=== PATIENT | male | born 1945 | race Caucasian/White ===

== ENCOUNTER → 2023-10-08 06:26 | Outpatient (REF) | payer MEDICARE, OTHER, SELFPAY ==
[2023-10-08 09:15] LABS: % Basophils 0.9 % (0-2); % Eosinophils 3.7 % (0-6); % Immature Granulocytes 0.3 % (0-0.5); % Lymphocytes 45.5 % (20.5-51.1); % Monocytes 9.5 % (1.7-9.3); % Neutrophils 40.1 % (42.2-75.2); Absolute Basophils 0.1 10^3/uL (0-0.2); Absolute Eosinophils 0.2 10^3/uL (0-0.7); Absolute Monocytes 0.6 10^3/uL (0.1-0.6); Absolute Neutrophils 2.6 10^3/uL (1.4-6.5); Hematocrit 40.1 % (39.0-52.0); Hemoglobin 13.8 g/dL (13.0-18.0); Mean Corp Hgb Conc. 34.4 g/dL (33.0-37.0); Mean Corpuscular Hgb 34.8 pg (27.0-31.0); Mean Platelet Volume 10.1 fL (7.4-10.4); Nucleated Red Blood Cells % 0 % (-); Platelet Count 245 10^3/uL (130-400); Red Blood Cell Count 3.97 10^6/uL (4.70-6.10); Red Cell Dist. Width 12.4 % (11.5-14.5); White Blood Cell Count 6.6 10^3/uL (4.8-10.8)
[2023-10-08 10:40] LABS: ALT (SGPT) 19 U/L (0-50); AST (SGOT) 31 U/L (17-59); Alkaline Phosphatase 70 U/L (38-126); Blood Urea Nitrogen 15 mg/dl (9-20); Calcium 9.1 mg/dl (8.4-10.2); Carbon Dioxide 28 mmol/L (22-30); Chloride 105 mmol/L (98-107); Glucose 104 mg/dl (70-99); Sodium 138 mmol/L (135-145); Total Bilirubin 1.2 mg/dl (0.2-1.3); Total Protein 7.2 g/dl (6.3-8.2); eGFR > 60.00
== END ==
LOC: HWLAB 06:26
PROVIDERS: ATTENDING PHYSICIAN Family Medicine
DX: I10 Essential (primary) hypertension (principal)
CPT/HCPCS: 36415; 80053; 85025

== ENCOUNTER → 2023-10-27 07:04 | Outpatient (REF) | payer MEDICARE, OTHER, SELFPAY | LOC: HWRCS 07:04 | PROVIDERS: ATTENDING PHYSICIAN Internal Medicine Cardiovascular Disease; FAMILY PHYSICIAN Family Medicine | DX: I48.91 Unspecified atrial fibrillation (principal) | CPT/HCPCS: 93306 ==

== ENCOUNTER → 2023-10-30 09:07 | Day surgery (SDC) | payer MEDICARE, OTHER, SELFPAY ==
[2023-10-30 10:03] VITALS: BMI 31.6
--- NOTE | 2023-10-30 10:30 | ITS.CL.CARDI ---
Durability Technician - Cardioversion
Cardioversion
Procedure Report:
Procedure: Direct current electrical cardioversion
Pre-operative diagnosis: Persistent atrial fibrillation
Post-operative diagnosis: Persistent atrial fibrillation status post DC cardioversion to sinus rhythm
Anesthesia: MAC
Attending Physician: Pj Perez MD
Procedure Description: The patient was brought to the electrophysiology laboratory in the fasting state. Adherence to anticoagulation regimen was confirmed. Informed consent was obtained from the patient prior to the start of the procedure.
Electrodes were placed on the patient and connected to an external defibrillator. Monitoring of blood pressure, ECG tracings, and pulse oximetry was initiated. The pads were applied to the patient in the anterior and posterior positions. The patient
was sedated by the anesthesiologist. A 200 joule biphasic synchronized shock was delivered to the patient under MAC anesthesia. Sinus rhythm was successfully restored. The patient recovered uneventfully from MAC anesthesia. There were no immediate
post-procedure complications. The patient left the lab in good condition. The attending physician was present throughout the entire procedure.
Impression: Successful direct current cardioversion with mu-ism of sinus rhythm after one 200 joule biphasic synchronized shock.
== END ==
LOC: CATH 09:07
PROVIDERS: ATTENDING PHYSICIAN Internal Medicine Cardiovascular Disease; FAMILY PHYSICIAN Family Medicine
DX: I48.19 Other persistent atrial fibrillation (principal)
CPT/HCPCS: 92960; 93005

== ENCOUNTER → 2024-03-18 14:45 | Outpatient (REF) | payer MEDICARE, OTHER, SELFPAY | LOC: HWRAD 14:45 | PROVIDERS: ATTENDING PHYSICIAN Specialist; FAMILY PHYSICIAN Family Medicine | DX: I10 Essential (primary) hypertension (principal); N28.1 Cyst of kidney, acquired | CPT/HCPCS: 76775 ==

== ENCOUNTER → 2024-05-31 07:18 | Outpatient (REF) | payer MEDICARE, OTHER, SELFPAY ==
[2024-05-31 10:11] LABS: INR 1.86; PT 21.2 Sec (11.4-14.6)
== END ==
LOC: HWLAB 07:18
PROVIDERS: ATTENDING PHYSICIAN Internal Medicine Cardiovascular Disease; FAMILY PHYSICIAN Family Medicine
DX: I48.19 Other persistent atrial fibrillation (principal)
CPT/HCPCS: 36415; 85610

== ENCOUNTER → 2024-06-02 07:32 | Outpatient (REF) | payer MEDICARE, OTHER, SELFPAY ==
[2024-06-02 09:53] LABS: INR 4.54; PT 43.9 Sec (11.4-14.6)
== END ==
LOC: HWLAB 07:32
PROVIDERS: ATTENDING PHYSICIAN Internal Medicine Cardiovascular Disease; FAMILY PHYSICIAN Family Medicine
DX: I48.19 Other persistent atrial fibrillation (principal)
CPT/HCPCS: 36415; 85610

== ENCOUNTER → 2024-06-07 07:44 | Outpatient (REF) | payer MEDICARE, OTHER, SELFPAY ==
[2024-06-07 09:13] LABS: INR 4.01; PT 39.1 Sec (11.4-14.6)
== END ==
LOC: HWLAB 07:44
PROVIDERS: ATTENDING PHYSICIAN Internal Medicine Cardiovascular Disease; FAMILY PHYSICIAN Family Medicine
DX: I48.19 Other persistent atrial fibrillation (principal)
CPT/HCPCS: 36415; 85610

== ENCOUNTER → 2024-06-14 07:29 | Outpatient (REF) | payer MEDICARE, OTHER, SELFPAY ==
[2024-06-14 10:45] LABS: PT 61.7 Sec (11.4-14.6)
[2024-06-14 10:51] LABS: INR 7.12
== END ==
LOC: HWLAB 07:29
PROVIDERS: ATTENDING PHYSICIAN Internal Medicine Cardiovascular Disease; FAMILY PHYSICIAN Family Medicine
DX: I48.19 Other persistent atrial fibrillation (principal)
CPT/HCPCS: 36415; 85610

== ENCOUNTER 2024-06-16 09:34 | Inpatient (IN) | payer MEDICARE, OTHER, SELFPAY ==
[2024-06-16] VITALS (25 sets, daily range): BP systolic 85–150; BP diastolic 57–99; PULSE 108–149; BMI 30.3; BMI 28.9
[2024-06-16 07:26] LABS: % Basophils 0.8 % (0-2); % Eosinophils 2.4 % (0-6); % Immature Granulocytes 0.2 % (0-0.5); % Lymphocytes 33.7 % (20.5-51.1); % Monocytes 8.7 % (1.7-9.3); % Neutrophils 54.2 % (42.2-75.2); Absolute Basophils 0.1 10^3/uL (0-0.2); Absolute Eosinophils 0.2 10^3/uL (0-0.7); Absolute Lymphocytes 2.1 10^3/uL (1.2-3.4); Absolute Monocytes 0.5 10^3/uL (0.1-0.6); Absolute Neutrophils 3.4 10^3/uL (1.4-6.5); Hematocrit 39.4 % (39.0-52.0); Hemoglobin 13.9 g/dL (13.0-18.0); Mean Corp Hgb Conc. 35.3 g/dL (33.0-37.0); Mean Corpuscular Hgb 35.5 pg (27.0-31.0); Mean Corpuscular Volume 100.8 fL (80.0-94.0); Mean Platelet Volume 10.3 fL (7.4-10.4); Nucleated Red Blood Cells % 0 % (-); Platelet Count 236 10^3/uL (130-400); Red Blood Cell Count 3.91 10^6/uL (4.70-6.10); Red Cell Dist. Width 12.8 % (11.5-14.5); White Blood Cell Count 6.2 10^3/uL (4.8-10.8)
[2024-06-16 07:34] LABS: PT 52.6 Sec (11.4-14.6)
[2024-06-16 07:39] LABS: ALT (SGPT) 17 U/L (0-50); AST (SGOT) 27 U/L (17-59); Alkaline Phosphatase 55 U/L (38-126); Blood Urea Nitrogen 12 mg/dl (9-20); Calcium 8.9 mg/dl (8.4-10.2); Carbon Dioxide 24 mmol/L (22-30); Chloride 105 mmol/L (98-107); Estimated Creatinine Clearance 106 ml/min; Glucose 98 mg/dl (70-99); Potassium 4.1 mmol/L (3.5-5.1); Sodium 140 mmol/L (135-145); Total Bilirubin 1.1 mg/dl (0.2-1.3); Total Protein 6.8 g/dl (6.3-8.2); eGFR > 60.00
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
[2024-06-16] MEDS: MEPHYTON 5 MG PO (08:28)
--- NOTE | 2024-06-16 09:09 | HPS.HSE ---
Family Physician
-
Family Physician: Daysi Delgadillo
Chief Complaint
-
Rectal bleeding
History of Present Illness
78-year-old man presented to the hospital for rectal bleeding. He woke up this morning and had loose mckinney movement this was bloody. Recently his INR was about 7 he also had a fall 2 days ago. When he went to go out landed on the right side and
also on the right rib did not hit the head. It was on a soft foam jeet. Denies any dizziness. No evidence of chest pain or shortness of breath except for the area where he landed on on the right rib. No melena no hematemesis no nausea or
vomiting
Medical History
Past Medical History
Past Medical History: Reports Other
Additional Past Medical History:
Chronic back pain and neck pain, atrial fibrillation, hypertension, hyperlipidemia, arthritis, depression, GERD
Past Surgical History: Reports Other
Additional Past Surgical History:
Cholecystectomy, appendectomy, right shoulder surgery, left shoulder ORIF, non-STEMI, left hip replacement, sinus surgery, left knee arthroplasty, cataract surgery, lumbar spine surgery, right total hip replacement,
Social History
Tobacco: Non-smoker
Alcohol: Daily (2 glasses of wine every day)
Drug: None
Personal:
Living: With Family
Employment: Retired
Family History
Family History: Not pertinent
Allergies / Home Medications
Allergies reflects when Allergies were last updated in [facility].
Home Medications with original date entered in [facility]
Allergy/Medication List:
Allergies
Allergy/AdvReac Type Severity Reaction Status Date / Time
morphine AdvReac 'years Verified 06/16/24 06:36
ago' 'mood
changes'
Home Medications
omeprazole 20 mg capsule,delayed release 20 mg PO DAILY stomach upset 08/20/18
amlodipine 10 mg tablet 10 mg PO DAILY blood pressure 02/03/19
losartan 100 mg tablet 100 mg PO DAILY Blood Pressure 02/03/19
acetaminophen 650 mg tablet,extended release 1,300 mg PO [id number] PRN mild pain 06/16/24
omega 5-ihx-pfc-fish oil 1,000 mg (120 mg-180 mg) capsule (Fish Oil) 1 cap PO DAILY Supplement 06/16/24
warfarin 5 mg tablet 5 mg PO UD Blood Clot Prevention/Tx 06/16/24
Review of Systems
-
A 12 point ROS was completed and negative except as noted: Yes
Respiratory: Denies Trouble Breathing
Cardiac: Denies Chest Pain
Abdomen/GI: Reports Bloody Stools; Denies Abdominal Pain, Nausea, Vomiting, Black Stools or Pain
Neurological: Denies Dizzy
Physical Exam
Vital Signs
Vital Signs
Temp Pulse Resp BP Pulse Ox
98.8 F 92 36 126/80 97
06/16/24 06:36 06/16/24 08:00 06/16/24 08:22 06/16/24 08:00 06/16/24 08:00
Physical Exam
General: No Apparent Distress and Comfortable
Cardiac: S1/S2 and Irregular Rhythm
GI: Soft, Non Tender and Normal Bowel Sounds
Skin: Warm
Neuro: Nonfocal/grossly intact
Psych: Intact Judgment/Insight
Laboratory Results
-
06/16/24 07:12
06/16/24 07:12
Laboratory Results
PT 52.6 Sec (11.4-14.6) H 06/16/24 07:12
INR 5.90 H* 06/16/24 07:12
Total Bilirubin 1.1 mg/dl (0.2-1.3) 06/16/24 07:12
AST 27 U/L (17-59) 06/16/24 07:12
ALT 17 U/L (0-50) 06/16/24 07:12
Alkaline Phosphatase 55 U/L (38-126) 06/16/24 07:12
Data Reviewed
-
Diagnostic Radiology: Image Personally Visualized and interpreted (X-ray of the ribs-no right side rib fractures. No pneumothorax or pleural effusion.)
Medical Tests (Nuc Med, Echo, EKG etc): Image Personally Visualized and interpreted (EKG-atrial fibrillation with a rate of 91)
Impression/Plan
-
IMPRESSION/PLAN:
Echo 3 2830-normal LV size, wall thickness and systolic function. EF 55 to 60%. Diastolic function indeterminate. Mild to moderate MR. Attic sclerosis without stenosis. Trace AI.
#GIB
CTA -increased density within the lumen of the rectum due to blood products. Focal area of nodular contrast enhancement involving medial aspect of the mid descending colon this is suspicious for a small focus of acute GI bleed although focal area
of angiodysplasia without active bleeding would have similar appearance. Numerous colonic diverticula no evidence of diverticulitis. Bony degenerative changes.
Admit to ICU
At present hemodynamically stable
Differentials includes diverticular bleed, angiectasia
Bleeding exacerbated by Coumadin
Hold Coumadin
Low-dose of vitamin K has been given-agree
Type and screen
Follow H&H
Blood consent obtained in the ER given to the breaker unit assembler to be scanned in
Protonix 40 mg IV daily
GI evaluation
Discussed with IR. INR is too high for intervention.
Since patient is in atrial fibrillation I did not start him on FFP's especially since he is hemodynamically stable.
# Paroxysmal atrial fibrillation
Patient is in atrial fibrillation at present not on any rate controlling agents as outpatient
Follow heart rate on hospital monitor
Hold anticoagulation
# Hypertension
Hold off on antihypertensives as blood pressure is on the low side
# GERD-continue PPI
# 2 glasses of wine every night-add thiamine. Watch for any withdrawal
# DVT prophylaxis-SCDs
# CODE STATUS-full code
D/W ER Nursing.
Discussed with at bedside
Discussed with ER attending at bedside
Discussed with GI and interventional radiology
Critical care time 45 minutes
--- NOTE | 2024-06-16 09:57 | CON.GI ---
Consultation
-
Date/Time Consultation Requested: 06/16/24 09.20 am
Date/Time Consultation Performed: 06/16/24 10/38 am
Requesting Provider: Evie Wetzel MD
Performing Provider: Cassie Kim MD
Reason for Consultation: Rectal Bleeding
Medical History
Chief Complaint / HPI
Chief Complaint: Rectal Bleeding
History of Present Illness:
The patient is a 78 yo male with a PMH of HTN, Renal cyst and A-fib who presented to ER after he noticed fresh blood with his stool this morning. He reported red colored blood with his stool for the first time this morning and he also had other 3
episodes of red colored BM with a very small amount of stool. He denies previous history of black/tarry stools, denies abdominal pain, fever/chills, nausea, hematemesis. His Abd/Pelvis Angio CT showed a suspicious small area in mid descending colon
supporting acute GI bleeding.The patient was consulted to GI team to be assessed for GI bleeding. The patient was started on Eliquis 4-5 months ago regarding his new A-fib diagnosis. He wanted to switch his Eliquis to warfarin due the cost and was
switched on warfarin about 2 weeks ago with 5 days Lovenox bridging. He was started with 5 mg of warfarin and had INR follow up with his clinic and was recommended to take half of his dose with INR level checks. His last warfarin taking was on
Thursday and it was 2.5 mg. His clinic called the patient on Thursday and advised the patient stop taking warfarin due his high INR level.
Past Medical History
Past Medical History: Arrhythmias (A-fib), HTN and Other (Renal Cyst )
Past Surgical History: Other (Left knee scope, Multiple epidural steroid injections, Bilateral total hip replacements, Back surgery, Pins in the left shoulder, Cholecystectomy, Appendectomy, Right total knee replacement, Right shoulder scope.)
Social History
Tobacco: Non-Smoker
Alcohol: Occasional
Drug: None
Personal:
Living: With Family
Family History
Family History: Reviewed & Not Pertinent
Allergies / Home Medications
Allergy/AdvReac Type Severity Reaction Status Date / Time
morphine AdvReac 'years Verified 06/16/24 06:36
ago' 'mood
changes'
�Medication �Instructions �Recorded
omeprazole 20 mg capsule,delayed 20 mg PO DAILY stomach upset 08/20/18
release
amlodipine 10 mg tablet 10 mg PO DAILY blood pressure 02/03/19
losartan 100 mg tablet 100 mg PO DAILY Blood Pressure 02/03/19
acetaminophen 650 mg 1,300 mg PO [id number] PRN mild pain 06/16/24
tablet,extended release
omega 2-jiv-tnl-fish oil 1,000 mg 1 cap PO DAILY Supplement 06/16/24
(120 mg-180 mg) capsule (Fish Oil)
warfarin 5 mg tablet 5 mg PO UD Blood Clot Prevention/Tx 06/16/24
Review of Systems
-
EENT: Reports No Symptoms
Respiratory: Reports Other (Pain on the right side with deep breathing after he had a fall 2 days ago )
Cardiac: Reports No Symptoms
Abdomen/GI: Reports No Symptoms and Other (See HPI )
: Reports No Symptoms
Musculoskeletal: Reports No Symptoms
Skin: Reports No Symptoms
Neurological: Reports No Symptoms
Vital Signs
Temp Pulse Resp BP Pulse Ox
98.8 F 81 16 136/79 99
06/16/24 06:36 06/16/24 09:34 06/16/24 09:34 06/16/24 09:34 06/16/24 09:34
Physical Exam
Exam
General: Well Developed, Well Nourished and Comfortable
HEENT: Normocephalic, Anicteric and Moist Mucous Membranes
Respiratory: Clear
Cardiac: S1/S2 and Irregular Rhythm
GI: Soft, Non Tender and Non Distended
Musculoskeletal: No Clubbing and No Cyanosis
Skin: Warm and Dry
Neuro: Awake, Alert, Oriented and AO x 3
Results
WBC 6.2 10^3/uL (4.8-10.8) 06/16/24 07:12
Hgb 13.9 g/dL (13.0-18.0) 06/16/24 07:12
Hct 39.4 % (39.0-52.0) 06/16/24 07:12
MCV 100.8 fL (80.0-94.0) H 06/16/24 07:12
Plt Count 236 10^3/uL (130-400) 06/16/24 07:12
Absolute Neuts (auto) 3.4 10^3/uL (1.4-6.5) 06/16/24 07:12
PT 52.6 Sec (11.4-14.6) H 06/16/24 07:12
INR 5.90 H* 06/16/24 07:12
Sodium 140 mmol/L (135-145) 06/16/24 07:12
Potassium 4.1 mmol/L (3.5-5.1) 06/16/24 07:12
Chloride 105 mmol/L (98-107) 06/16/24 07:12
Carbon Dioxide 24 mmol/L (22-30) 06/16/24 07:12
BUN 12 mg/dl (9-20) 06/16/24 07:12
Creatinine 0.6 mg/dL (0.7-1.3) L 06/16/24 07:12
Calcium 8.9 mg/dl (8.4-10.2) 06/16/24 07:12
Total Bilirubin 1.1 mg/dl (0.2-1.3) 06/16/24 07:12
AST 27 U/L (17-59) 06/16/24 07:12
ALT 17 U/L (0-50) 06/16/24 07:12
Alkaline Phosphatase 55 U/L (38-126) 06/16/24 07:12
Diagnostic Image Results:
CT Abd/Pelvis Angio 06/16/24
IMPRESSION: There is increased density within the lumen of the rectum, which may be due to blood products. Differential consideration of increased density from medication.
There is a focal area of nodular contrast enhancement involving the medial aspect of the mid descending colon, although not progressing into the lumen on postcontrast delayed images. This is suspicious for a small focus of acute GI bleeding,
although a focal area of angiodysplasia without active bleeding could have a similar appearance.
Consider correlation with serial hemoglobin measurements.
Numerous colonic diverticula with no convincing CT evidence for diverticulitis. No evidence for bowel obstruction or free intraperitoneal air.
Bony degenerative changes as described.
Prior GI Procedures:
EGD: Not Known
Colonoscopy: 2017
Findings:
Multiple small and large-mouthed diverticula were found in the sigmoid
colon, descending colon and transverse colon.
No other significant abnormalities were identified in a careful
examination of the remainder of the colon.
No additional abnormalities were found on retroflexion.
Impression: - Diverticulosis in the sigmoid colon and in the
descending colon.
Recommendation: - To prevent colon cancer:
High fiber, low fat diet.
Take a multivitamin with Vitamins C and B complex along
with calcium (Centrum, Theragram, Multiple vitamin, etc.)
Take aspirin- 81mg- if there are no contraindications.
- You have diverticulosis- outpouches of the wall of the
colon.
Problems that can arise as a result of this condition
include;
1.) Profuse (cups, pints, quarts) painless bleeding
happens rarely- <1%. If it occurs, go to the ER.
2.) Painful diverticulitis occurs approximately 10% of
the time. This is possibly the result of hard stool
(probably) or poorly digested food such as nuts, seeds
and corn (less likely) becoming trapped in these
pockets. Consider increasing the fiber in your diet to
make the stool soft.
Using fiber (Fibercon, Citrucel, Benefiber, Metamucil)
possibly can prevent more diverticulosis from occurring.
- Repeat colonoscopy in 10 years for screening purposes.
- Return to my office as needed.
Assessment / Plan
-
Impression: The patient is a 78 yo male with a PMH of HTN, Renal cyst and A-fib who presented to ER after he noticed fresh blood with his stool this morning. The patient was started on Eliquis 4-5 months ago regarding his new A-fib diagnosis. He
wanted to switch his Eliquis to warfarin due the cost and was switched on warfarin about 2 weeks ago with 5 days Lovenox bridging. He was started with 5 mg of warfarin and had INR follow up with his clinic and was recommended to take half of his
dose with INR level checks. His last warfarin taking was on Thursday and it was 2.5 mg. He reported red colored blood with his stool for the first time this morning and he also had other 3 episodes of red colored BM with a very small amount of stool
today. His clinic called the patient on Thursday and advised the patient stop taking warfarin due his high INR level. His INR level was found 5.9 this morning and was 7.1 on 06/14; Hgb level was found 13.9 which is likely at his baseline.
He denies previous history of black/tarry stools, denies abdominal pain, fever/chills, nausea, hematemesis. His Abd/Pelvis Angio CT showed a suspicious small area in mid descending colon supporting acute GI bleeding.
Plan/Assessment:
#Lower GI bleeding Possibly due Warfarin
-Abd/Pelvis Angio CT: A suspicious small area in mid descending colon supporting acute GI bleeding
-IR consultation recc
-INR level tending down, last taking warfarin was on Thursday
-Was given 5mg of Mephyton once on 06/16
-Hold warfarin until INR >3 , avoid NSAI med, continue IV fluids
-HGB: 13.9 likely at baseline
-Hgb Serial Q8H, INR f/u daily
-Continue her current home PPI
-NPO for now until Hgb deyvi with follow up levels
We will follow up the patient
-
-
Thank you for consultation and allowing me to participate in the patient's care. Please call the wildfire prevention specialist GI physician during the after hours with any questions or concerns.
--- NOTE | 2024-06-16 12:12 | EDRN ---
Report called to [facility].
--- NOTE | 2024-06-16 12:41 | EDRN ---
Patient taken to room 3361 on monitor on stretcher. with patient.
[2024-06-16] MEDS: PROTONIX IV 40 MG IV (12:52)
[2024-06-16] MEDS: NSS (PRESERVATIVE FREE) 10 ML IV (12:52)
[2024-06-16] MEDS: THIAMINE INJECTION 200 MG IV (12:53)
[2024-06-16] MEDS: NSS 1000 IV (12:53)
[2024-06-16 13:30] LABS: Hematocrit 34.8 % (39.0-52.0); Hemoglobin 12.3 g/dL (13.0-18.0)
[2024-06-16 13:51] LABS: APTT 77.3 Sec (23.4-35.0)
--- NOTE | 2024-06-16 14:20 | CON.INTV ---
Consultation
Consultation Request
Date/Time Consultation Requested: 06/16/2024
Date/Time Consultation Performed: 06/16/2024
Requesting Provider: Dr. Wetzel
Performing Provider: Dr. Maurice Frank
Reason for Consultation: severe GI bleed
Medical History
-
Chief Complaint: GI bleed
History of Present Illness:
78-year-old man with past medical history significant for atrial fibrillation, hypertension, hyperlipidemia, arthritis and GERD who presented to the emergency room complaining of rectal bleeding. Woke up this morning and had a bloody bowel
movement. His INR recently as he is on Coumadin was 7. Denies melena.
Denies hematemesis.
Denies significant abdominal pain or back pain.
Past Medical History
Past Medical History: Other (See assessment and plan)
Social History
Tobacco: Non-smoker
Alcohol: Daily (2 glasses of wine)
Drug: None
Personal:
Living: With Family
Employment: Retired
Family History
Family History: Reviewed & Not Pertinent
Allergies / Home Medications
Allergies
Allergy/AdvReac Type Severity Reaction Status Date / Time
morphine AdvReac 'years Verified 06/16/24 06:36
ago' 'mood
changes'
Home Medications
�Medication �Instructions �Recorded �Confirmed �Last Taken �Type
omeprazole 20 mg capsule,delayed 20 mg PO DAILY stomach upset 08/20/18 06/16/24 06/15/24 History
release
amlodipine 10 mg tablet 10 mg PO DAILY blood pressure 02/03/19 06/16/24 06/15/24 History
losartan 100 mg tablet 100 mg PO DAILY Blood Pressure 02/03/19 06/16/24 06/15/24 History
acetaminophen 650 mg 1,300 mg PO [id number] PRN mild pain 06/16/24 06/16/24 Unknown History
tablet,extended release
omega 0-zlp-twi-fish oil 1,000 mg 1 cap PO DAILY Supplement 06/16/24 06/16/24 06/15/24 History
(120 mg-180 mg) capsule (Fish Oil)
warfarin 5 mg tablet 5 mg PO UD Blood Clot Prevention/Tx 06/16/24 06/16/24 2 Days Ago History
~06/14/24
Review of Systems
-
History Source: Patient
All other systems: Negative unless noted
Vitals / Labs / Diagnostic Testing
Vital Signs
Temp Pulse Resp BP Pulse Ox
98.8 F 95 17 129/82 98
06/16/24 06:36 06/16/24 14:15 06/16/24 14:15 06/16/24 14:00 06/16/24 14:15
Lab Data
06/16/24 07:12
Laboratory Results
06/16/24 06/16/24
07:12 13:22
PT 52.6 H
INR 5.90 H*
APTT 77.3 H
Diagnostic Testing:
Physical Exam
-
HEENT: Normocephalic
Cardiovascular: S1/S2
Respiratory: Non-Labored Respirations
GI: Soft and Non Distended
Neurology: Awake, Alert, AO x 3 and No Motor Deficits
Skin: Warm, Dry and Good Color
General: Comfortable
Assessment
-
78-year-old male with history of atrial fibrillation, hypertension, was admitted to the hospital due to hematochezia. Found to have supratherapeutic INR in the setting of Coumadin use. Admitted for close observation to the ICU given significant
amount of bright red blood per rectum.
GI bleed-hematochezia
CT angiogram: Showed increased density within the lumen of the rectum due to blood products.Focal area of nodular contrast enhancement involving medial aspect of the mid descending colon this is suspicious for a small focus of acute GI bleed
although focal area of angiodysplasia without active bleeding would have similar appearance. Numerous colonic diverticula no evidence of diverticulitis. Bony degenerative changes.
Coumadin coagulopathy-INR elevated 5.9 on admission
Conditions present prior admission:
Paroxysmal atrial fibrillation
Hypertension
GERD
Daily alcohol use 2 glasses of wine
Hyperlipidemia
Depression
Chronic back and neck pain
Prior sinus surgery
Left knee arthroplasty
Lumbar spine surgery
Right total knee arthroplasty
Bilateral shoulder surgery
Prior cholecystectomy and appendectomy
Assessment and plan:
Patient was transferred to the critical care unit for close observation.
So far hemodynamically without tachycardia or hypotension.
Hemoglobin 12.3 at 1322 hrs.
Status post vitamin K
Hold FFP for now with history of atrial fibrillation and hemodynamically stability.
Follow INR.
-
Benign abdominal exam.
PPI started
CT angiogram noted with possible active focus of bleeding-as above. IR unable to perform procedure due to increased INR.
Will continue to follow closely
GI correspondence reviewed, no plans for intervention at this point.
Follow H&H
Will transfuse as necessary
Continue hemodynamic monitoring
Coumadin on hold until INR under 3
-
N.p.o. for now
IV fluids
Head of the bed elevation
-
Hemodynamic monitoring in the critical care unit
If hemoglobin is stable by tomorrow morning and no plans for intervention then we will transfer to telemetry
--- NOTE | 2024-06-16 14:25 | PTCARENOTE ---
Pt receoved from ED via stretcher. Transferred over to unit bed by nursing staff. AAOx3. Denying pain. Stating pain to upper right chest when pushed on related to a recent fall. No bruise apparent. 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 +1 LE
edema. Pedal pulses palpable. SaO2 97% on room air. Lungs diminished. Pt (+) small liquid burgundy stool. #20 in left AC with NSS @ 75ml/hr infusing. New #20 placed in left right. Ordered labs drawn and sent.
--- NOTE | 2024-06-16 18:19 | PTCARENOTE ---
Pt reassessed. HR to 150s when standing at bedside for orthostatic hypotension. HR slowed to 100s-110s after returning to bed. Pt without complaint.
--- NOTE | 2024-06-16 19:45 | PTCARENOTE ---
Patient received in bed, AAOx3. Afib on monitor, afebrile, blood pressure as documented. Palpable pulses throughout, +1 edema to bilateral lower extremities. Knee high SCDS maintained. Lungs clear, pulse ox 96% on room air. Abdomen soft with
positive bowel sounds. Voiding in urinal . #20 in left wrist with IVF infusing as ordered. #20 g in LAC flushed and patent. Call mckinney within reach
--- NOTE | 2024-06-16 20:07 | PTCARENOTE ---
Patient with large bloody bowel movement, notified Brooks MCKEON, INR ordered in addition to H&H
[2024-06-16 20:10] LABS: Hematocrit 30.7 % (39.0-52.0); Hemoglobin 10.8 g/dL (13.0-18.0)
[2024-06-16 20:20] LABS: INR 2.61; PT 28.3 Sec (11.4-14.6)
[2024-06-17] VITALS (22 sets, daily range): BP systolic 95–134; BP diastolic 64–100; PULSE 101–136; BMI 28.9
[2024-06-17] MEDS: NSS 1000 IV ×2 (01:36→15:23)
--- NOTE | 2024-06-17 04:36 | PTCARENOTE ---
assumed care of pt, assessment as documented. denies pain at this time. AM labs sent. call mckinney within reach.
[2024-06-17 05:17] LABS: % Basophils 0.5 % (0-2); % Eosinophils 1.1 % (0-6); % Immature Granulocytes 0.3 % (0-0.5); % Lymphocytes 23.3 % (20.5-51.1); % Monocytes 7.1 % (1.7-9.3); % Neutrophils 67.7 % (42.2-75.2); Absolute Eosinophils 0.1 10^3/uL (0-0.7); Absolute Lymphocytes 1.5 10^3/uL (1.2-3.4); Absolute Monocytes 0.5 10^3/uL (0.1-0.6); Absolute Neutrophils 4.5 10^3/uL (1.4-6.5); Hematocrit 30.1 % (39.0-52.0); Hemoglobin 10.6 g/dL (13.0-18.0); Mean Corp Hgb Conc. 35.2 g/dL (33.0-37.0); Mean Corpuscular Hgb 35.5 pg (27.0-31.0); Mean Corpuscular Volume 100.7 fL (80.0-94.0); Mean Platelet Volume 10.6 fL (7.4-10.4); Nucleated Red Blood Cells % 0 % (-); Platelet Count 196 10^3/uL (130-400); Red Blood Cell Count 2.99 10^6/uL (4.70-6.10); Red Cell Dist. Width 12.6 % (11.5-14.5); White Blood Cell Count 6.6 10^3/uL (4.8-10.8)
[2024-06-17 05:18] LABS: INR 1.81; PT 21.5 Sec (11.4-14.6)
[2024-06-17 05:35] LABS: ALT (SGPT) 13 U/L (0-50); AST (SGOT) 22 U/L (17-59); Albumin 3.2 g/dl (3.5-5.0); Alkaline Phosphatase 43 U/L (38-126); Blood Urea Nitrogen 14 mg/dl (9-20); Calcium 8.3 mg/dl (8.4-10.2); Carbon Dioxide 20 mmol/L (22-30); Chloride 108 mmol/L (98-107); Estimated Creatinine Clearance 93 ml/min; Glucose 87 mg/dl (70-99); Magnesium 1.7 mg/dl (1.6-2.3); Sodium 140 mmol/L (135-145); Total Bilirubin 1.5 mg/dl (0.2-1.3); Total Protein 5.6 g/dl (6.3-8.2); eGFR > 60.00
[2024-06-17] MEDS: NSS (PRESERVATIVE FREE) 10 ML IV (07:42)
[2024-06-17] MEDS: THIAMINE INJECTION 200 MG IV (07:42)
[2024-06-17] MEDS: PROTONIX IV 40 MG IV (07:42)
[2024-06-17] MEDS: LR 500 IV (08:15)
--- NOTE | 2024-06-17 09:13 | PTCARENOTE ---
"pt aaox3. states no pain. room air breath sounds clear. ivf running as ordered. orthostatic bp done. pt became dizzy and week while standing hr 135 afib seen on monitor. returned to lying position. pt then had a large burgundy liquid BM. Dr Zac (~) notified ivf bolus ordered. Dr garber and dr harrell notified. vss pt states he feels better in bed"
[2024-06-17 09:39] LABS: Iron 122 ug/dl (49-181)
[2024-06-17 09:49] LABS: Percent Saturation 50 % (20-50); Total Iron Binding Capacity 241 ug/dl (261-462)
[2024-06-17] MEDS: MAGNESIUM SULFATE 100 IV (09:59)
--- NOTE | 2024-06-17 10:19 | W.PN.HOSP.TC ---
Today's Communication/Plan
-
Repeat hemoglobin
Watch for any further bleeding
Follow GI instructions
Assessment / Plan
Assessment / Plan
78-year-old admitted with rectal bleeding
Had 1 bout movement this morning. Patient also felt dizzy when he stood up for orthostatic blood pressure checking.
On examination awake alert oriented able to communicate
Cardiovascular system S1-S2 irregular
Chest clear to auscultation
Abdomen soft and nontender
No pedal edema
Neuroexam is nonfocal
06/16/24- CTA -increased density within the lumen of the rectum due to blood products. Focal area of nodular contrast enhancement involving medial aspect of the mid descending colon this is suspicious for a small focus of acute GI bleed although
focal area of angiodysplasia without active bleeding would have similar appearance. Numerous colonic diverticula no evidence of diverticulitis. Bony degenerative changes.
#GIB
Differentials includes diverticular bleed, angiectasia
Bleeding exacerbated by Coumadin
Hold Coumadin
Low-dose of vitamin K has been given
Type and screen
Follow H&H
Blood consent obtained in the ER given to the aboriginal community council member to be scanned in
Protonix 40 mg IV daily
GI consulted
Hypercoagulopathy secondary to Coumadin with an elevated INR has resolved, was 5.9 on admission. INR 1.8 today.
Case discussed with GI who recommended to get in touch with interventional radiology. Per discussion with IR today he would need another CTA as the CT from yesterday was not very convincing for an active bleed.
We will repeat a hemoglobin and I will defer to GI whether he needs a repeat CTA at this point.
Iron studies ordered-appears to be adequate
# Paroxysmal atrial fibrillation
Patient is in atrial fibrillation at present not on any rate controlling agents as outpatient
Follow heart rate on gift wrapper
Hold anticoagulation
# Hypertension
Hold off on antihypertensives as blood pressure is on the low side
# GERD-continue PPI
# 2 glasses of wine every night-continue thiamine. Watch for any withdrawal
# DVT prophylaxis-SCDs
# CODE STATUS-full code
Discussed with interventional radiology, GI and core laying machine operator
Discussed with nursing
Total Critical Care Time 34 minutes. I was immediately available to the patient and staff. I personally examined, reviewed labs, diagnostic images/reports, interpretations, treatment plans, discussed patient care with other providers and
entered orders as appropriate and documented the medical record.
Anticipated Discharge: 24 - 48 hours
Subjective/Interval History
-
Date of Service: June 17, 2024
Objective Data
-
Labs:
Laboratory Results
06/17/24 06/17/24
04:32 10:07
WBC 6.6
Hgb 10.6 L Pending
Hct 30.1 L Pending
Plt Count 196
PT 21.5 H
INR 1.81
Sodium 140
Potassium 4.0
Chloride 108 H
Carbon Dioxide 20 L
BUN 14
Creatinine 0.5 L
Glucose 87
Calcium 8.3 L
Total Bilirubin 1.5 H
AST 22
ALT 13
Alkaline Phosphatase 43
Vital Signs:
Vital Signs
Temp Pulse Resp BP Pulse Ox
98.2 F 84 25 95/68 94
06/17/24 07:52 06/17/24 06:00 06/17/24 06:00 06/17/24 06:00 06/17/24 06:00
I&O
06/16/24 06/17/24 06/18/24
06:59 06:59 06:59
Intake Total 1125 / 1200 650 / 650
Output Total 900 / 1250 350 / 350
Balance 225 / -50 300 / 300
[2024-06-17 10:23] LABS: Hematocrit 28.2 % (39.0-52.0)
[2024-06-17 10:38] LABS: Ferritin 58.7 ng/ml (17.9-464.0)
[2024-06-17 10:52] LABS: Vitamin B12 411 pg/ml (239-931)
--- NOTE | 2024-06-17 10:56 | W.PN.INTV ---
Today's Communication / Plan
Recommendations
Repeat H&H at 2 PM
Follow hemodynamics
gentle IV fluids
Diet per GI
If stable and hemoglobin is stable later in the afternoon then we will transfer to telemetry.
If patient transferred to telemetry critical care team will sign off.
Assessment
-
78-year-old male with history of atrial fibrillation, hypertension, was admitted to the hospital due to hematochezia. Found to have supratherapeutic INR in the setting of Coumadin use. Admitted for close observation to the ICU given significant
amount of bright red blood per rectum.
GI bleed-hematochezia
CT angiogram: Showed increased density within the lumen of the rectum due to blood products.Focal area of nodular contrast enhancement involving medial aspect of the mid descending colon this is suspicious for a small focus of acute GI bleed
although focal area of angiodysplasia without active bleeding would have similar appearance. Numerous colonic diverticula no evidence of diverticulitis. Bony degenerative changes.
Coumadin coagulopathy-INR elevated 5.9 on admission
Conditions present prior admission:
Paroxysmal atrial fibrillation
Hypertension
GERD
Daily alcohol use 2 glasses of wine
Hyperlipidemia
Depression
Chronic back and neck pain
Prior sinus surgery
Left knee arthroplasty
Lumbar spine surgery
Right total knee arthroplasty
Bilateral shoulder surgery
Prior cholecystectomy and appendectomy
Assessment and plan:
Earlier this morning coupon standing up from the supine position develop orthostasis with hypotension and tachycardia.
Resolved after laying back in bed.
Benign abdominal exam.
Hemoglobin stable this morning at 10.6.
Had a bowel movement with dark stools earlier in the morning.
Patient denies any particular complaints to my evaluation.
Due to episode of orthostasis earlier today 500 mL bolus of LR was given this morning.
Continue gentle IV fluids
-
Repeat H&H at 10 AM was 10 g/dL.
Will repeat again in 4 hours.
Doubt active bleeding at this point but will continue to monitor closely.
-
Currently not significantly tachycardic or hypotensive.
Continue hemodynamic monitoring.
-
INR has reversed to 1.8.
Status post vitamin K
Hold FFP for now with history of atrial fibrillation and hemodynamically stability.
-
GI continues to follow
N.p.o. hopefully can start diet later today
Continue PPI
If there is active rebleeding repeat CT angiogram will be ordered, if there is active bleeding noted then interventional radiology will be consulted.
-
Hemodynamic monitoring in the critical care unit
If by this afternoon hemoglobin remained stable, there is no active bleeding. No plans for procedure. Will transfer to telemetry later today.
Subjective Dataa
Subjective Data
Date of Service:
Date of Service: June 17, 2024
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
Subjective:
Patient offers no new complaints.
This morning developed orthostatic hypotension.
During my evaluation laying in bed, asymptomatic.
Had a bowel movement with dark blood earlier in the morning.
Denies abdominal pain. Denies nausea or vomiting
Review of Systems
General: Fever (n)
Cardiopulmonary: Dyspnea (n)
GI: Abdominal Pain (n), Nausea (n) and Vomiting (n)
Neuro: Headache (n)
Objective Data
Data Reviewed
Vital Signs / I&O / Oxygen:
Vital Signs
Temp Pulse Resp BP Pulse Ox
98.2 F 84 25 95/68 94
06/17/24 07:52 06/17/24 06:00 06/17/24 06:00 06/17/24 06:00 06/17/24 06:00
Intake and Output
06/16/24 06/17/24 06/18/24
06:59 06:59 06:59
Intake Total 1125 / 1200 725 / 725
Output Total 900 / 1250 350 / 350
Balance 225 / -50 375 / 375
SaO2 94
Physical Exam
General: Comfortable
HEENT: Normocephalic
Cardiovascular: S1-S2
Respiratory: Clear
GI: Soft, Non Distended and Non Tender
Neurology: Awake, Alert and No Motor Deficits
Skin: Warm
Labs/Micro/Reports
Lab Data
06/17/24 10:07
06/17/24 04:32
Laboratory Results
06/16/24 06/16/24 06/17/24
13:22 20:02 04:32
PT 28.3 H 21.5 H
INR 2.61 D 1.81
APTT 77.3 H
--- NOTE | 2024-06-17 11:40 | PTCARENOTE ---
Documented prior vitals that had not been crossed over before I accepted this patient.
--- NOTE | 2024-06-17 11:56 | W.PN.GI.CBS2 ---
Today's Communication / Plan
-
Monitor H&H. Keep NPO pending clinical course today, advance to clears for dinner of no further bleeding and stable hemoglobin
Assessment / Plan
-
Impression: The patient is a 78 yo male with a PMH of HTN, Renal cyst and A-fib who presented to ER after he noticed fresh blood with his stool this morning. The patient was started on Eliquis 4-5 months ago regarding his new A-fib diagnosis. He
wanted to switch his Eliquis to warfarin due the cost and was switched on warfarin about 2 weeks ago with 5 days Lovenox bridging. He was started with 5 mg of warfarin and had INR follow up with his clinic and was recommended to take half of his
dose with INR level checks. His last warfarin taking was on Thursday and it was 2.5 mg. He reported red colored blood with his stool for the first time this morning and he also had other 3 episodes of red colored BM with a very small amount of stool
today. His clinic called the patient on Thursday and advised the patient stop taking warfarin due his high INR level. His INR level was found 5.9 this morning and was 7.1 on 06/14; Hgb level was found 13.9 which is likely at his baseline. Repeat
hemoglobin showed approx 2.5 g drop, 13.9 --> 12.3 --> 10.8 --> 10.6 -->10.
Abd/Pelvis Angio CT showed a suspicious small area in mid descending colon supporting acute GI bleeding.
Hgb trend: 13.9 --> 12.3 --> 10.8 --> 10.6 -->10.
INR: 7.12 --> 5.90 --> 2.61 --> 1.81
Plan/Assessment:
#Lower GI bleeding Possibly due Warfarin
-Abd/Pelvis Angio CT: A suspicious small area in mid descending colon supporting acute GI bleeding
-INR level tending down, last taking warfarin was on Thursday (06/13)
-Was given 5mg of Mephyton once on 06/16
-Hold warfarin until INR >3 , avoid NSAID med, continue IV fluids
-orthostatic with another episode of rectal bleeding overnight, responded well to IV fluids. Repeat Hgb stable, would continue to trend. If he has another episode of rectal bleeding, recommend repeat CTA, hold off on endoscopic eval for now, I do
feel this bleeding was all occurring in the setting of supratherapeutic INR. Ideally, would defer colonsocopy to the outpatient setting, but will see how his clinical course progresses given recurrent bleeding this morning
-Hgb Serial Q8H, INR f/u daily
-Continue her current home PPI
-NPO for now until Hgb deyvi with follow up levels. If no additional epsiodes of bleeding today, with stable H&H, okay to advance to clears for dinner
GI will continue to follow.
Subjective
Subjective
Date of Service: June 17, 2024
Patient seen in follow-up early this morning, reported feeling well, he was resting comfortably in bed. No reported episodes of GI bleeding overnight. Following my assessment, he was noted to be orthostatic and passed burgundy colored stool. Repeat
hemoglobin 10 from 10.6.
Objective
Data Reviewed
Laboratory Data:
Laboratory Results
06/17/24 04:32
Laboratory Results
PT 21.5 Sec (11.4-14.6) H 06/17/24 04:32
INR 1.81 06/17/24 04:32
APTT 77.3 Sec (23.4-35.0) H 06/16/24 13:22
Magnesium 1.7 mg/dl (1.6-2.3) 06/17/24 04:32
Total Bilirubin 1.5 mg/dl (0.2-1.3) H 06/17/24 04:32
AST 22 U/L (17-59) 06/17/24 04:32
ALT 13 U/L (0-50) 06/17/24 04:32
Alkaline Phosphatase 43 U/L (38-126) 06/17/24 04:32
Vital Signs and I&O:
Vital Signs
Temp Pulse Resp BP Pulse Ox
98.0 F 95 21 105/89 96
06/17/24 11:32 06/17/24 11:00 06/17/24 11:00 06/17/24 11:00 06/17/24 11:00
I&O
06/16/24 06/17/24 06/18/24
06:59 06:59 06:59
Intake Total 1125 / 1200 800 / 800
Output Total 900 / 1250 350 / 350
Balance 225 / -50 450 / 450
Physical Exam
Physical Exam
HEENT: no scleral icterus, mucous membranes moist, OP clear
ABDOMEN: +BS; soft, non-tender and non-distended; no rebound or guarding
--- NOTE | 2024-06-17 12:00 | PTCARENOTE ---
Assumed care of patient at 11:00. Assessed patient and documented in shift assessment on worklist.
Patient is AAOx3, pleasant and cooperative. Presently A-Fib 80-90's on monitor. Receiving NSS 75mL/hour through L Wrist IV. On RA. Attempted to have bowel movement on bedpan however only had flatus. Hemodynamically stable at this time.
--- NOTE | 2024-06-17 12:07 | PN.CDI ---
CDI
- -
CDI:
Physician Documentation Request
Admit Date: 06/16/24 09:34
Dear Doctor Damari,
Clinical Indicators:
Patient admitted with rectal bleeding.
06/17 (09:13) RN note, 'pt became dizzy and week while standing hr 135...'
IVF: LR 500 ml bolus x 1; NSS @ 75 ml/hr
Hgb/Hct trend
06/16/24 06/16/24 06/17/24
07:12 20:02 04:32
Hgb 13.9 10.8 L 10.6 L
Hct 39.4 30.7 L 30.1 L
Based on the above, could you clarify in the progress notes, the appropriate diagnosis, if significant, that supports the above abnormalities and additional evaluation, monitoring and/or treatment rendered:
Acute blood loss anemia
Anemia due to acute blood loss and hemodilution
Abnormal lab values, clinically insignificant
Other
Use of terms such as suspected, likely, concern for, or probable (associated with a specific diagnosis that is being evaluated, monitored, or treated as if it exists) are acceptable and can be coded in the inpatient setting, when documented at the
time of discharge.
Thank you,
Julisa Lobato RN BSN
CDI Specialist
available via tiger text
Please use your independent medical judgment in providing your response.
[2024-06-17 15:45] LABS: Hematocrit 27.6 % (39.0-52.0); Hemoglobin 9.8 g/dL (13.0-18.0)
--- NOTE | 2024-06-17 16:20 | W.PN.UPDATE ---
Update Note
Progress Note Update
At this point patient denies any complaints. Had a small bowel movement with what appears to be dark old blood.
Remains hemodynamically stable.
Not tachycardic. Hemoglobin 9.8 which is stable.
At this point no plans for any interventions.
Will transfer to telemetry.
Consider clear liquids.
If there is concerns for acute rebleeding CT angiogram will be ordered.
Critical care team will sign off.
--- NOTE | 2024-06-17 19:41 | PTCARENOTE ---
Received pt via handoff. Pt AAOx3, able to [place]. AFIB with PVC's. Trace edema in LE. 94% on RA, lungs diminished but clear. Pain with deep breaths. Hyperactive bowel sounds in all 4Q. Pt able to use bedpan and urinal. Urine clear and yellow. Skin
CDI. NS running see flowsheet. Call mckinney at bedside, will continue to monitor.
[2024-06-18] VITALS (21 sets, daily range): BP systolic 80–152; BP diastolic 51–95; PULSE 98–117; BMI 28.8; BMI 29.0
--- NOTE | 2024-06-18 | PTCARENOTE ---
All systems reassessed, no change in status. Call mckinney at bedside will continue to monitor.
[2024-06-18] MEDS: NSS 1000 IV ×2 (03:24→18:06)
[2024-06-18 03:38] LABS: Hematocrit 27.2 % (39.0-52.0); Hemoglobin 9.6 g/dL (13.0-18.0); Mean Corp Hgb Conc. 35.3 g/dL (33.0-37.0); Mean Corpuscular Hgb 35.7 pg (27.0-31.0); Mean Corpuscular Volume 101.1 fL (80.0-94.0); Mean Platelet Volume 10.3 fL (7.4-10.4); Platelet Count 200 10^3/uL (130-400); Red Blood Cell Count 2.69 10^6/uL (4.70-6.10); Red Cell Dist. Width 12.4 % (11.5-14.5); White Blood Cell Count 7.3 10^3/uL (4.8-10.8)
--- NOTE | 2024-06-18 03:59 | PTCARENOTE ---
All systems reassessed. Hygiene performed, labs drawn, will continue to monitor.
[2024-06-18 04:03] LABS: ALT (SGPT) 14 U/L (0-50); AST (SGOT) 23 U/L (17-59); Albumin 3.2 g/dl (3.5-5.0); Alkaline Phosphatase 46 U/L (38-126); Blood Urea Nitrogen 10 mg/dl (9-20); Calcium 8.2 mg/dl (8.4-10.2); Carbon Dioxide 24 mmol/L (22-30); Chloride 105 mmol/L (98-107); Estimated Creatinine Clearance 93 ml/min; Glucose 89 mg/dl (70-99); Potassium 3.7 mmol/L (3.5-5.1); Sodium 138 mmol/L (135-145); Total Bilirubin 1.1 mg/dl (0.2-1.3); Total Protein 5.8 g/dl (6.3-8.2); eGFR > 60.00
[2024-06-18] MEDS: NSS (PRESERVATIVE FREE) 10 ML IV ×2 (08:20→19:26)
[2024-06-18] MEDS: THIAMINE INJECTION 200 MG IV (08:21)
[2024-06-18] MEDS: PROTONIX IV 40 MG IV ×2 (08:21→19:25)
--- NOTE | 2024-06-18 08:50 | PTCARENOTE ---
Addendum entered by Maddy Hammond RN 06/18/24 10:58:
report to [employer]PER[employer], patient for EGD this am. awaiting transport for stretcher
Original Note:
report received, assessments per work list. patientdenies pain. orthostatic vitals per work list. patient asymptomatic. monitor afib, resting heart rate 90-100. rate increased to 140 while transfering to reclining chair. self limited. back to
baseline at rest. lungs with basilar crackles. abdomen soft, non tender. passing flatus. voiding clear yellow urine in urinal. call mckinney in reach. patient instructed to not get up without assistance, patient verbalizes understanding. tolerating
clear liquids without issue
--- NOTE | 2024-06-18 10:23 | W.PN.UPDATE ---
Update Note
Progress Note Update
Patient continues to be orthostatic, with black tarry stool noted today. Hgb has been downtrending. Will make NPO now. Will plan for EGD today. If no evidence of UGIB noted on EGD, repeat CTA with next episode of bleeding.
--- NOTE | 2024-06-18 10:24 | W.PN.HOSP.TC ---
Today's Communication/Plan
-
EGD
OK to stop IVF when PO intake started
Assessment / Plan
Assessment / Plan
78-year-old admitted with rectal bleeding
Had 1 black tarry bm this am
Orthostatic
On examination awake alert oriented able to communicate
Cardiovascular system S1-S2 irregular
Mild rales right base
Abdomen soft and nontender
No pedal edema
Neuroexam is nonfocal
06/16/24- CTA -increased density within the lumen of the rectum due to blood products. Focal area of nodular contrast enhancement involving medial aspect of the mid descending colon this is suspicious for a small focus of acute GI bleed although
focal area of angiodysplasia without active bleeding would have similar appearance. Numerous colonic diverticula no evidence of diverticulitis. Bony degenerative changes.
#GIB
Differentials includes diverticular bleed, angiectasia, Upper GIB as he had melena today
Initial CTA showed some bleed , but INR was too high to intervene.
Bleeding exacerbated by Coumadin
Holding Coumadin
Low-dose of vitamin K has been given
Type and screen done
Follow H&H
Blood consent obtained in the ER given to the loading unit tool setter to be scanned in
Protonix 40 mg IV daily
GI consulted
Hypercoagulopathy secondary to Coumadin with an elevated INR has resolved, was 5.9 on admission. INR normal now
Case discussed with GI - will do EGD this am
# Paroxysmal atrial fibrillation
Patient is in atrial fibrillation at present not on any rate controlling agents as outpatient
Follow heart rate on alarm security or surveillance monitor
Hold anticoagulation
# Hypertension
Hold off on antihypertensives as blood pressure is on the low side
# GERD-continue PPI
# 2 glasses of wine every night-continue thiamine. Watch for any withdrawal
# DVT prophylaxis-SCDs
# CODE STATUS-full code
Discussed with GI
Discussed with nursing
D/w AT BED SIDE
Anticipated Discharge: 24 - 48 hours
Subjective/Interval History
-
Date of Service: June 18, 2024
Objective Data
-
Labs:
Laboratory Results
06/18/24
03:27
WBC 7.3
Hgb 9.6 L
Hct 27.2 L
Plt Count 200
Sodium 138
Potassium 3.7
Chloride 105
Carbon Dioxide 24
BUN 10
Creatinine 0.5 L
Glucose 89
Calcium 8.2 L
Total Bilirubin 1.1
AST 23
ALT 14
Alkaline Phosphatase 46
Vital Signs:
Vital Signs
Temp Pulse Resp BP Pulse Ox
98.0 F 94 21 105/73 97
06/18/24 07:00 06/18/24 09:00 06/18/24 09:00 06/18/24 08:43 06/18/24 09:00
I&O
06/17/24 06/18/24 06/19/24
06:59 06:59 06:59
Intake Total 1125 / 1200 2225 / 2225 345 / 345
Output Total 900 / 1250 2350 / 2350 200 / 200
Balance 225 / -50 -125 / -125 145 / 145
[2024-06-18 10:59] LABS: Magnesium 1.6 mg/dl (1.6-2.3)
--- NOTE | 2024-06-18 11:06 | PTCARENOTE ---
transport to PACU by volunteer
--- NOTE | 2024-06-18 15:49 | PTCARENOTE ---
patient tolerated clear liquids. assisted out of bed to commode had moderate amount burgundy stool. hospitalist and GI updated by nuvia silveira
[2024-06-18 16:41] LABS: Hematocrit 27.6 % (39.0-52.0); Hemoglobin 9.9 g/dL (13.0-18.0)
--- NOTE | 2024-06-18 20:05 | PTCARENOTE ---
Received pt via handoff. Pt AAOx3, able to HUDSON. AFIB with PVC's. Trace edema in LE. 94% on RA, lungs diminished but clear. Pain with deep breaths. Hyperactive bowel sounds in all 4Q. Pt able to use bedpan and urinal. Urine clear and yellow. Skin
CDI. NS running see flowsheet. Patient being transferred to room 408 bed 1, report given to RN. at bedside.
--- NOTE | 2024-06-18 20:43 | PTCARENOTE ---
Receive pt from ICU via wheelchair. Pt alert oriented X3, calm and cooperative, in no distress. Pt has no complaint of SOB, headache, or dizziness. Pt oriented to the room, call mckinney within reach. Pt on Afib on telemonitor, VSS (T=97.6, DT=877,
RR=18, BB=198/95, SpO2=96% on RA). IVFs infusing as per order. Advise the pt to call for assistance before OOB. Will continue to monitor the pt.
[2024-06-19] VITALS (7 sets, daily range): BP systolic 109–139; BP diastolic 63–86; PULSE 95–130
[2024-06-19] MEDS: NSS 1000 IV (05:57)
[2024-06-19 06:34] LABS: Hematocrit 27.3 % (39.0-52.0); Hemoglobin 9.3 g/dL (13.0-18.0); Mean Corp Hgb Conc. 34.1 g/dL (33.0-37.0); Mean Corpuscular Volume 102.6 fL (80.0-94.0); Mean Platelet Volume 10.3 fL (7.4-10.4); Platelet Count 216 10^3/uL (130-400); Red Blood Cell Count 2.66 10^6/uL (4.70-6.10); Red Cell Dist. Width 12.6 % (11.5-14.5); White Blood Cell Count 6.7 10^3/uL (4.8-10.8)
[2024-06-19 06:44] LABS: INR 1.16; PT 15.1 Sec (11.4-14.6)
[2024-06-19 06:56] LABS: Blood Urea Nitrogen 8 mg/dl (9-20); Calcium 8.1 mg/dl (8.4-10.2); Carbon Dioxide 22 mmol/L (22-30); Chloride 107 mmol/L (98-107); Estimated Creatinine Clearance 93 ml/min; Glucose 104 mg/dl (70-99); Magnesium 1.6 mg/dl (1.6-2.3); Potassium 3.8 mmol/L (3.5-5.1); Sodium 141 mmol/L (135-145); eGFR > 60.00
--- NOTE | 2024-06-19 07:12 | W.PN.GI.CBS2 ---
Today's Communication / Plan
-
Advance diet, monitor hemoglobin. Will require repeat EGD as outpatient for bx of suspected long-segment BE. Change to PO PPI daily
Assessment / Plan
-
78 yo male with a PMH of HTN, Renal cyst and A-fib admitted to the ER with hematochezia found to have supratherapeutic INR. He had an initial CT abdomen pelvis with angio with a possible blush in the mid descending colon, however, when reevaluated
radiology felt this was not truly a positive CTA. He was monitored clinically and continued to have evidence of rectal bleeding and orthostasis, yesterday with an episode of melena, prompting an urgent endoscopy which revealed actively bleeding
AVMs in the stomach, successfully treated with APC.
Hgb trend: 13.9 --> 12.3 --> 10.8 --> 10.6 -->10 --> 9.6 --> 9.9 --> 9.3
INR: 7.12 --> 5.90 --> 2.61 --> 1.81 --> 1.16
Plan/Assessment:
-No signs of ongoing bleeding overnight and patient no longer orthostatic
-He recently changed his anticoagulation to warfarin due to the cost of eliquis, however, I would urge him to reconsider eliquis as managing the INR with warfarin proved to be difficult and is likely what caused his GI bleeding. I would favor
holding anticoagulation for another day and resuming tomorrow
-initial positive CTA in the descending colon is questionable, per follow-up conversation with IR, although, it is certainly possible that he is AVMs present in other locations in his GI tract
-okay for regular diet
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 We will arrange for outpatient follow-up once he is discharged.
GI will continue to follow.
Subjective
Subjective
Date of Service: June 19, 2024
Patient is status post EGD yesterday due to ongoing evidence of GI bleeding, episode of melena yesterday morning and orthostatic. EGD revealed actively bleeding gastric AVMs, treated with APC. Following the procedure he did have 1 small burgundy
stool, attributed to old blood as he was actively bleeding during the procedure. Replete hemoglobins were overall stable, he was transferred to the telemetry.
He was very upset this morning due to the state he was transferred to [facility]-- blankets assisted off of the bed. No bowel movements since shortly following his procedure yesterday. Morning Hgb was 9.3, down from 9.9.
Hgb 9.6 --> 9.9 --> 9.3
Objective
Data Reviewed
Laboratory Data:
Laboratory Results
06/19/24 06:15
06/19/24 06:15
Laboratory Results
PT 15.1 Sec (11.4-14.6) H 06/19/24 06:15
INR 1.16 06/19/24 06:15
APTT 77.3 Sec (23.4-35.0) H 06/16/24 13:22
Magnesium 1.6 mg/dl (1.6-2.3) 06/19/24 06:15
Total Bilirubin 1.1 mg/dl (0.2-1.3) 06/18/24 03:27
AST 23 U/L (17-59) 06/18/24 03:27
ALT 14 U/L (0-50) 06/18/24 03:27
Alkaline Phosphatase 46 U/L (38-126) 06/18/24 03:27
Vital Signs and I&O:
Vital Signs
Temp Pulse Resp BP Pulse Ox
98.1 F 89 16 113/63 97
06/19/24 03:00 06/19/24 03:00 06/19/24 03:00 06/19/24 03:00 06/19/24 03:00
I&O
06/18/24 06/19/24 06/20/24
06:59 06:59 06:59
Intake Total 2750 / 2750 3480 / 3480
Output Total 2350 / 2350 2800 / 2800
Balance 400 / 400 680 / 680
Physical Exam
Physical Exam
HEENT: no scleral icterus, mucous membranes moist, OP clear
ABDOMEN: +BS; soft, non-tender and non-distended; no rebound or guarding
[2024-06-19] MEDS: THIAMINE INJECTION 200 MG IV (09:31)
[2024-06-19] MEDS: PROTONIX IV 40 MG IV (09:31)
[2024-06-19] MEDS: FLUSH (NSS) 2 FLUSH IV (09:31)
[2024-06-19] MEDS: NSS (PRESERVATIVE FREE) 10 ML IV (09:31)
--- NOTE | 2024-06-19 10:55 | W.PN.HOSP.TC ---
Today's Communication/Plan
-
follow H&H
stop IVF
replete Mg
Assessment / Plan
Assessment / Plan
78yo M with PMHx of Afib, HTN came with bright red blood per rectum. Was recently switched to Coumadin from Eliquis 2/2 co-payment amount and was also found supratherapeutic INR. S/P EGD on 05/18/24 with multiple bleeding angioectasias that were
treated. Monitoring for recurrent bleeding, advancing the diet and following HGB
A/P:
#Acute symptomatic blood loss anemia 2/2 upper GIB
#Barrets
CTA on admission iwth possible blush in the mid-descending colon, however felt to be not truly positive by GI and radiology review
s/p EGD on 05/18/24
Serial HGB
Daily orthostatics
Advance diet
GI for repeated EGD as outpatient
PPI
#Essential HTN
holding antihypertensives
#Paroxysmal Afib
#Supratherapeutic INR
warfarin held
GI recommending Eliquis - will discuss with patient, otherwise - outpatient mgmt by cardiology
#hypomagnesemia
Replete
DVT ppx SCDs
Full code
I have spent at least 56min reviewing chart, test results, communication with consultants and direct patient care
Anticipated Discharge: Within 24 hours
Subjective/Interval History
-
Date of Service: June 19, 2024
Objective Data
-
Labs:
Laboratory Results
06/19/24 06/19/24 06/19/24
06:15 12:00 20:00
WBC 6.7
Hgb 9.3 L Pending Pending
Hct 27.3 L Pending Pending
Plt Count 216
PT 15.1 H
INR 1.16
Sodium 141
Potassium 3.8
Chloride 107
Carbon Dioxide 22
BUN 8 L
Creatinine 0.5 L
Glucose 104 H
Calcium 8.1 L
Vital Signs:
Vital Signs
Temp Pulse Resp BP Pulse Ox
97.9 F 96 16 112/69 98
06/19/24 07:55 06/19/24 07:55 06/19/24 07:55 06/19/24 07:55 06/19/24 07:55
I&O
06/18/24 06/19/24 06/20/24
06:59 06:59 06:59
Intake Total 2750 / 2750 3480 / 3480
Output Total 2350 / 2350 2800 / 2800
Balance 400 / 400 680 / 680
Review of Systems
-
History Source: Patient
All other systems: Reviewed and negative
Physical Exam
-
General: Well Nourished and No Apparent Distress
HEENT: Normocephalic
Respiratory: Clear to Auscultation
GI: Soft, Nontender and Nondistended
Skin: Warm
Neuro: Awake, Alert, Oriented and AO x 3
Psych: Calm
[2024-06-19] MEDS: MAGNESIUM SULFATE 50 IV (11:54)
[2024-06-19 12:32] LABS: Hematocrit 28.8 % (39.0-52.0)
--- NOTE | 2024-06-19 13:30 | PTCARENOTE ---
Obtained pt's orthostatic BPs this am per orders: supine 127/79, HR 95, sitting 127/76, HR 106, standing 129/86, HR 130. Pt asymptomatic with orthostatic BPs and elevated HR with standing. Once at rest, HR down to low 100s-115, telemetry in Afib.
Pt ambulated to bathroom with just supervision, had large BM that was dark brown/black in color, soft (BM prior to 1200 H&H) Pt's HR up to 150s with ambulation and in bathroom, [place]. Once back at rest, HR low 100s. Denies any dizziness or chest
discomfort with elevated HR. Dr. Wheat aware of elevated HR, BM, and results of 1200 H&H, will monitor.
--- NOTE | 2024-06-19 18:33 | PTCARENOTE ---
Pt advanced to low residue diet for dinner and tolerated without any difficulty. Pt had an additional dark brown/black stool this afternoon for a total of 2 today, no abdominal pain, no N/V. Repeat H&H at 2000 this evening.
[2024-06-19 21:02] LABS: Hematocrit 26.6 % (39.0-52.0); Hemoglobin 9.3 g/dL (13.0-18.0)
[2024-06-19] MEDS: NSS (PRESERVATIVE FREE) IV (21:29)
[2024-06-20 03:12] VITALS: BP 113/61
[2024-06-20 05:09] LABS: Hematocrit 25.3 % (39.0-52.0); Hematocrit 25.5 % (39.0-52.0); Hemoglobin 8.8 g/dL (13.0-18.0); Hemoglobin 8.9 g/dL (13.0-18.0); Mean Corp Hgb Conc. 34.8 g/dL (33.0-37.0); Mean Corpuscular Hgb 34.9 pg (27.0-31.0); Mean Corpuscular Volume 100.4 fL (80.0-94.0); Mean Platelet Volume 10.3 fL (7.4-10.4); Platelet Count 227 10^3/uL (130-400); Red Blood Cell Count 2.52 10^6/uL (4.70-6.10); Red Cell Dist. Width 12.8 % (11.5-14.5); White Blood Cell Count 7.7 10^3/uL (4.8-10.8)
[2024-06-20 05:11] LABS: INR 1.08; PT 14.3 Sec (11.4-14.6)
[2024-06-20 05:22] LABS: Blood Urea Nitrogen 9 mg/dl (9-20); Calcium 8.2 mg/dl (8.4-10.2); Carbon Dioxide 25 mmol/L (22-30); Chloride 106 mmol/L (98-107); Estimated Creatinine Clearance 93 ml/min; Glucose 107 mg/dl (70-99); Potassium 3.9 mmol/L (3.5-5.1); Sodium 141 mmol/L (135-145); eGFR > 60.00
[2024-06-20 07:30] VITALS: BP 127/86; BP 138/66; BP 140/83; PULSE 121; PULSE 87; PULSE 99
--- NOTE | 2024-06-20 07:56 | CON.CAR ---
Addendum entered and electronically signed by Jac Mehta MD 06/20/24 13:32:
I saw and examined the patient.
The SENIOR PROPERTY MANAGER's note was reviewed and I agree with the note.
Comment:
78-year-old male (known to Dr. Farrell, his primary home care associate), with persistent atrial fibrillation (on warfarin), hypertension, and daily EtOH consumption who presented to the emergency department 06/16/2024 with a chief complaint of bright
red blood per rectum. Underwent EGD on 06/18/2024 with multiple bleeding angioectasias. He is now safe to resume anticoagulation per GI. He also continues to have RVR with heart rates in the 90s-100s at rest and 120s-130s with ambulation.
For his persistent atrial fibrillation, he has been started on metoprolol tartrate 25 mg twice daily. We will uptitrate this as tolerated for goal HR less than 110. For his anticoagulation, apixaban has been prohibitively expensive in the past.
We will ask case management to look into the cost of rivaroxaban. If rivaroxaban is not cost prohibitive, we will start it this evening and monitor tomorrow for bleeding. If he needs to continue warfarin, we will give him a dose of Lovenox tonight
and start his warfarin. He does not need to stay here until his INR is therapeutic, but we should monitor for 24 hours from his Lovenox dose for bleeding. Dabigatran is not a good option due to the increased risk of GI bleeding.
Original Note:
Consultation
Consultation Request
Date/Time Consultation Requested: 06/20/2024 07:30
Date/Time Consultation Performed: 06/20/2024 08:00
Requesting Provider: Dr. Hendricks
Performing Provider: LINDA Hinojosa for Dr. Mehta
Reason for Consultation: Rate control (atrial fibrillation)
Medical History
-
Chief Complaint: BRBPR
History of Present Illness:
Kameron Bearden is a 78-year-old male (known to Dr. Farrell, his primary home care associate), with persistent atrial fibrillation (on warfarin), hypertension, and daily EtOH consumption who presented to the emergency department 06/16/2024 with a chief
complaint of bright red blood per rectum. Prior to his admission, he had a recent hypercoagulable INR, 7.12. When he arrived to the emergency department INR 5.90. He was seen and evaluated by GI. He underwent EGD 06/18/2024. He was found to have
multiple bleeding angioectasias. He was placed on PPI. Cardiology was consulted this morning for elevated rates in atrial fibrillation.
Past Medical History
Past Medical History: Arrhythmias (Persistent atrial fibrillation [on warfarin]) and HTN
Past Surgical History: Appendectomy, Cholecystectomy and Orthopedic
Social History
Alcohol: Daily
Drug: None
Personal:
Living: With Family
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
Family History
Family History: Reviewed & Not Pertinent
Allergies / Home Medications
Allergy/AdvReac Type Severity Reaction Status Date / Time
morphine AdvReac 'years Verified 06/16/24 06:36
ago' 'mood
changes'
�Medication �Instructions �Recorded �Confirmed �Type
omeprazole 20 mg capsule,delayed 20 mg PO DAILY stomach upset 08/20/18 06/16/24 History
release
amlodipine 10 mg tablet 10 mg PO DAILY blood pressure 02/03/19 06/16/24 History
losartan 100 mg tablet 100 mg PO DAILY Blood Pressure 02/03/19 06/16/24 History
acetaminophen 650 mg 1,300 mg PO [id number] PRN mild pain 06/16/24 06/16/24 History
tablet,extended release
omega 3-rtj-gcs-fish oil 1,000 mg 1 cap PO DAILY Supplement 06/16/24 06/16/24 History
(120 mg-180 mg) capsule (Fish Oil)
warfarin 5 mg tablet 5 mg PO UD Blood Clot Prevention/Tx 06/16/24 06/16/24 History
Review of Systems
-
History Source: Patient
All other systems: Negative unless noted
Constitutional: No Symptoms
EENT: No Symptoms
Respiratory: No Symptoms
Cardiac: No Symptoms
Abdomen/GI: Black Stools
: No Symptoms
Musculoskeletal: No Symptoms
Skin: No Symptoms
Neurological: No Symptoms
Endocrine: No Symptoms
Hematologic/Lymphatic: No Symptoms
Physical Exam
Vital Signs
Temp Pulse Resp BP Pulse Ox
98 F 75 18 113/61 95
06/20/24 03:12 06/20/24 03:12 06/20/24 03:12 06/20/24 03:12 06/20/24 03:12
Lab Results
06/20/24 04:34
06/20/24 04:33
Physical Exam
General: Well Developed, Well Nourished, No Apparent Distress and Comfortable
HEENT: Normocephalic and Moist Mucous Membranes
Respiratory: Clear and Non Labored Respirations
Cardiac: S1/S2 and Irregular Rhythm; Negative Peripheral Edema
Breast: Deferred by me
GI: Soft, Non Tender, Non Distended and Normal Bowel Sounds
Rectal: Deferred by Provider
Genito-urinary: No Costovertebral Tender
Musculoskeletal: No Clubbing, No Cyanosis and No Edema
Skin: Warm and Dry
Neuro: AO x 3
Hematologic/Lymphatic: No Lymphadenopathy
Psych: Calm
Impression / Plan
-
BACKGROUND: 78M persistent atrial fibrillation (on warfarin), hypertension, and daily EtOH consumption who presented to the emergency department 06/16/2024 with BRBPR. Recent outpatient INRs supratherapeutic.
IMPRESSION/PLAN:
Persistent atrial fibrillation
-Rates elevated, he is not on AV marco agents in the outpatient setting, started on metoprolol tartrate 25 mg twice daily by primary service, continue
-No plans to restore sinus rhythm at this time
-Oral Anticoagulation: Warfarin, on hold, resumption per GI
-[id number]: score 3 (HTN, age 75 or more)
-DOAC was recommended in the outpatient setting, apixaban was cost prohibitive (double checking with Case Mgmt)
-Dabigatran was being avoided due to his elevated bleeding risk in the setting of 3 glasses of wine every evening
Hypertension
-Agents on hold, will likely need to decrease amlodipine and losartan to allow for rate controlling agent
Anemia in the setting of UGI bleed
-EGD 06/18/2024: Multiple bleeding angioectasias
-Will require repeat EGD as an outpatient for biopsy of suspected long segment Oneal's esophagus
-Transfusion per primary
Daily EtOH, 3 glasses of homemade wine every evening, cessation recommended
SUBJECTIVE:
Endoscopy report reviewed.
Denies chest pain, dizziness, and palpitations.
DATA:
Transthoracic echocardiogram, 10/27/2023:
Normal left ventricular size, wall thickness and systolic function. No
regional wall motion abnormalities are seen. Estimated ejection fraction is 55-
60%. Diastolic function indeterminate.
Mitral valve opens normally. Thickened mitral valve leaflets. Mild to moderate
mitral regurgitation.
Indexed LA volume is mildly abnormal (35-41 mL/m2).
Trileaflet aortic valve. Aortic sclerosis without stenosis. Trace aortic
insufficiency.
Since echocardiogram August 2018, there is no significant change. Patient is
now in atrial fibrillation.
Data Reviewed
-
EKG: Report Reviewed by me
Labs: Labs Reviewed by me
Old Records: Reviewed
[2024-06-20] MEDS: NSS (PRESERVATIVE FREE) IV ×2 (09:01→21:41)
[2024-06-20] MEDS: LOPRESSOR 25 MG PO ×2 (09:09→21:20)
[2024-06-20] MEDS: THIAMINE INJECTION 200 MG IV (09:09)
[2024-06-20] MEDS: PROTONIX 40 MG PO (09:09)
--- NOTE | 2024-06-20 10:29 | W.PN.GI.CBS2 ---
Today's Communication / Plan
-
Continue PO PPI. Okay to resume AC-- recommend seeing if Xarelto is an affordable option for him
Assessment / Plan
-
78 yo male with a PMH of HTN, Renal cyst and A-fib admitted to the ER with hematochezia found to have supratherapeutic INR. He had an initial CT abdomen pelvis with angio with a possible blush in the mid descending colon, however, when reevaluated
radiology felt this was not truly a positive CTA. He was monitored clinically and continued to have evidence of rectal bleeding and orthostasis, yesterday with an episode of melena, prompting an urgent endoscopy which revealed actively bleeding
AVMs in the stomach, successfully treated with APC.
Hgb trend: 13.9 --> 12.3 --> 10.8 --> 10.6 -->10 --> 9.6 --> 9.9 --> 9.3 8.8 --> 8.9
INR: 7.12 --> 5.90 --> 2.61 --> 1.81 --> 1.16
Plan/Assessment:
-No signs of ongoing bleeding overnight and patient no longer orthostatic--suspect some old blood passing in yesterdays BM
-He recently changed his anticoagulation to warfarin due to the cost of eliquis; I am concerned about resuming warfarin and the difficulties it may continue to pose in keeping his INR therapeutic. I recommend looking into to see if Xarelto may be
affordable for him
-okay to resume AC today after determining which agent will be appropriate for him moving forward
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 We will arrange for outpatient follow-up once he is discharged.
GI will continue to follow.
Subjective
Subjective
Date of Service: June 20, 2024
Patient sen in follow-up, Hgb 9.3 --> 10 --> 9.3 --> 8.8 --> 8.9. Had 1 melenic BM yesterday in early afternoon, no BM since.
Objective
Data Reviewed
Laboratory Data:
Laboratory Results
06/20/24 04:34
06/20/24 04:33
Laboratory Results
PT 14.3 Sec (11.4-14.6) 06/20/24 04:33
INR 1.08 06/20/24 04:33
APTT 77.3 Sec (23.4-35.0) H 06/16/24 13:22
Magnesium 1.6 mg/dl (1.6-2.3) 06/19/24 06:15
Total Bilirubin 1.1 mg/dl (0.2-1.3) 06/18/24 03:27
AST 23 U/L (17-59) 06/18/24 03:27
ALT 14 U/L (0-50) 06/18/24 03:27
Alkaline Phosphatase 46 U/L (38-126) 06/18/24 03:27
Vital Signs and I&O:
Vital Signs
Temp Pulse Resp BP Pulse Ox
98.0 F 87 18 127/86 96
06/20/24 07:30 06/20/24 07:30 06/20/24 07:30 06/20/24 07:30 06/20/24 08:20
I&O
06/19/24 06/20/24 06/21/24
06:59 06:59 06:59
Intake Total 3480 / 3480 2340 / 2340
Output Total 2800 / 2800 725 / 725
Balance 680 / 680 1615 / 1615
Physical Exam
Physical Exam
HEENT: no scleral icterus, mucous membranes moist, OP clear
ABDOMEN: +BS; soft, non-tender and non-distended; no rebound or guarding
[2024-06-20 11:05] VITALS: BP 117/67
--- NOTE | 2024-06-20 11:57 | CM ---
Patient seen at bedside with patient present. Patient states that he lives in a 2 story home with a first floor set up. Patient stated that he was on eliquis but was unable to afford medication and changed to warfarin but then needed to be
hospitalized. Patient stated that PCP is Dr. Delgadillo and he uses [facility] [place]. Patient plan is for discharge home with support. Patient has had [facility] in the past and he would be happy to have them again if needed. CM called to [facility] to
confirm cost of apixapan 136.00for one month supply approx per [facility] and Xarelto 130.00$ for one month supply approx per [facility]. CM will continue to follow for discharge planning needs.
Plan; home with VN vs home with no needs.
--- NOTE | 2024-06-20 12:29 | W.PN.HOSP.TC ---
Today's Communication/Plan
-
Monitor on BB and Lovenox
CM for Xarelto
Assessment / Plan
Assessment / Plan
78yo M with PMHx of Afib, HTN came with bright red blood per rectum. Was recently switched to Coumadin from Eliquis 2/2 co-payment amount and was also found supratherapeutic INR. S/P EGD on 05/18/24 with multiple bleeding angioectasias that were
treated. Monitoring for recurrent bleeding, advancing the diet and following HGB
A/P:
#Acute symptomatic blood loss anemia 2/2 upper GIB
#Barrets
CTA on admission iwth possible blush in the mid-descending colon, however felt to be not truly positive by GI and radiology review
s/p EGD on 05/18/24
Serial HGB
Daily orthostatics
Advance diet
GI for repeated EGD as outpatient
PPI
#Essential HTN
holding antihypertensives
#Paroxysmal Afib, poorly controlled
#Supratherapeutic INR
CM to work on Xarelto 20mg daily approval, otherwise - cont Lovenox and Warfarin bridge. Started Lovenox on 06/20/24 as per GI recommendations
Cardio consult
Telemetry
started BB
#hypomagnesemia
Replete
DVT ppx SCDs
Full code
I have spent at least 36min reviewing chart, test results, communication with consultants and direct patient care
Anticipated Discharge: Within 24 hours
Subjective/Interval History
-
Date of Service: June 20, 2024
Objective Data
-
Labs:
Laboratory Results
06/20/24 06/20/24 06/20/24
04:33 04:34 04:34
WBC 7.7
Hgb 8.8 L 8.9 L
Hct 25.3 L
Plt Count
PT 14.3
INR 1.08
Sodium 141
Potassium 3.9
Chloride 106
Carbon Dioxide 25
BUN 9
Creatinine 0.6 L
Glucose 107 H
Calcium 8.2 L
06/20/24
04:34
WBC
Hgb
Hct 25.5 L
Plt Count 227
PT
INR
Sodium
Potassium
Chloride
Carbon Dioxide
BUN
Creatinine
Glucose
Calcium
Vital Signs:
Vital Signs
Temp Pulse Resp BP Pulse Ox
97.6 F 85 18 117/67 97
06/20/24 11:05 06/20/24 11:05 06/20/24 11:05 06/20/24 11:05 06/20/24 11:05
I&O
06/19/24 06/20/24 06/21/24
06:59 06:59 06:59
Intake Total 3480 / 3480 2340 / 2340
Output Total 2800 / 2800 725 / 725
Balance 680 / 680 1615 / 1615
Review of Systems
-
History Source: Patient
All other systems: Reviewed and negative
Physical Exam
-
General: No Apparent Distress
HEENT: Normocephalic
Cardiac: Irregular Rhythm and Tachycardic
GI: Soft
Genito-urinary: No Costovertebral Tender
Musculoskeletal: No Clubbing, No Cyanosis and No Edema
Neuro: Awake, Alert, Oriented and AO x 3
Psych: Calm
[2024-06-20] MEDS: LOVENOX 80 MG SC (13:21)
[2024-06-20 15:25] VITALS: BP 116/65
--- NOTE | 2024-06-20 16:41 | PTCARENOTE ---
Patient voiding 100-200cc at a time. Pt complaining of urinary burning and urgency this afternoon. Bladder scan done- 0. Dr Wheat made aware. Will continue to monitor.
[2024-06-20 19:14] VITALS: BP 111/71
[2024-06-20] MEDS: ELIQUIS 5 MG PO (21:20)
[2024-06-20 21:59] LABS: Urine Albumin Negative (Neg - Trace); Urine Bilirubin Negative (Negative); Urine Character Clear (Clear); Urine Color Yellow; Urine Glucose Negative (Negative); Urine Ketone Negative (Negative); Urine Leukocyte Negative (Negative); Urine Nitrite Negative (Negative); Urine Occult Blood Negative (Negative); Urine Urobilinogen 2+ (Neg - 1+)
[2024-06-20 23:22] VITALS: BP 111/65
[2024-06-21 03:24] VITALS: BP 124/66
[2024-06-21 07:30] VITALS: BP 131/76; BP 133/88; BP 135/73; PULSE 93; PULSE 94; PULSE 97
[2024-06-21 08:03] LABS: Hematocrit 27.7 % (39.0-52.0); Hemoglobin 9.4 g/dL (13.0-18.0)
--- NOTE | 2024-06-21 08:40 | W.PN.CD ---
Today's Communication / Plan
-
Increase metoprolol to 25 mg every 6 hours to allow for rapid titration
Ambulate today to see heart rates with activity
Continue apixaban for now. Case management will akhiok back with patient and to discuss pricing
Impression / Plan
-
BACKGROUND: 78M persistent atrial fibrillation (on warfarin), hypertension, and daily EtOH consumption who presented to the emergency department 06/16/2024 with BRBPR, found to have bleeding angioectasias on EGD. Resumed on anticoagulation
(06/20/2024), still with uncontrolled A-fib with RVR.
IMPRESSION/PLAN:
Persistent atrial fibrillation
-Rates elevated, he is not on AV marco agents in the outpatient setting
-No plans to restore sinus rhythm at this time
-Increase metoprolol to tartrate to 25 mg every 6 hours. Will increase this afternoon if rates remain uncontrolled.
-Oral Anticoagulation: Outpatient warfarin. Started on apixaban (06/20/2024) with no bleeding. Case management to discuss DOAC pricing. If cost prohibitive, will go back to warfarin. He would not need to stay in the hospital for bridging.
-[id number]: score 3 (HTN, age 75 or more)
Hypertension
-Agents on hold, will likely need to decrease amlodipine and losartan to allow for rate controlling agent
Anemia in the setting of UGI bleed
-EGD 06/18/2024: Multiple bleeding angioectasias
-Will require repeat EGD as an outpatient for biopsy of suspected long segment Oneal's esophagus
-Transfusion per primary
Daily EtOH, 3 glasses of homemade wine every evening, cessation recommended
SUBJECTIVE:
Denies any CV complaints this morning. No bleeding overnight. Hemoglobin stable this morning. Has some concerns about Eliquis pricing and would like to speak with case management again. Telemetry reveals atrial fibrillation with heart rates in
the 130s-150s before metoprolol dose yesterday evening. Overnight heart rates in the 80s while sleeping. This morning heart rates high 90s to 100s at rest.
DATA:
Transthoracic echocardiogram, 10/27/2023:
Normal left ventricular size, wall thickness and systolic function. No
regional wall motion abnormalities are seen. Estimated ejection fraction is 55-
60%. Diastolic function indeterminate.
Mitral valve opens normally. Thickened mitral valve leaflets. Mild to moderate
mitral regurgitation.
Indexed LA volume is mildly abnormal (35-41 mL/m2).
Trileaflet aortic valve. Aortic sclerosis without stenosis. Trace aortic
insufficiency.
Since echocardiogram August 2018, there is no significant change. Patient is
now in atrial fibrillation.
Physical Exam
Vital Signs/Labs
Vital Signs
Temp Pulse Resp BP Pulse Ox
98.4 F 94 18 131/76 97
06/21/24 07:30 06/21/24 07:30 06/21/24 07:30 06/21/24 07:30 06/21/24 07:30
06/21/24 07:40
06/20/24 04:33
PT 14.3 Sec (11.4-14.6) 06/20/24 04:33
INR 1.08 06/20/24 04:33
APTT 77.3 Sec (23.4-35.0) H 06/16/24 13:22
Magnesium 1.6 mg/dl (1.6-2.3) 06/19/24 06:15
Physical Exam
Constitutional: No acute distress and Comfortable
Cardiovascular: JVD pressure is normal, Rhythm/rate is irregular, Pedal edema present and Murmur/rub/gallop absent
Respiratory: Respiratory effort normal and Lungs clear to auscul.
Data Reviewed
-
Date of Service: June 21, 2024
Medical Decision Making: Reviewed Test Results, Independent Historian Assessment, Test Interpretation and Review of Case with other Provider
EKG: Tracing Personally Visualized and interpreted
Echo: Report Reviewed by me
Labs: Labs Reviewed by me
[2024-06-21] MEDS: LOPRESSOR PO (09:06)
[2024-06-21] MEDS: ELIQUIS 5 MG PO (09:09)
[2024-06-21] MEDS: LOPRESSOR 25 MG PO (09:09)
[2024-06-21] MEDS: PROTONIX 40 MG PO (09:09)
[2024-06-21] MEDS: THIAMINE INJECTION 200 MG IV (09:10)
--- NOTE | 2024-06-21 10:37 | CM ---
Addendum entered by Mahi Ferreira 06/21/24 11:11:
IMM provided and signed form placed on chart. Patient given coupons for xarlelto and patient and declined VN at this time. Pending PT/OT assessment
Original Note:
Patient and seen at bedside. Patient with many questions about insurance/medications. All questions addressed. Patient plan is home with , no VN at this time.
[2024-06-21 11:23] VITALS: BP 110/69
--- NOTE | 2024-06-21 11:29 | W.PN.GI.CBS2 ---
Today's Communication / Plan
-
Resume AC. Outpatient GI follow-up arranged. GI will sign off.
Assessment / Plan
-
78 yo male with a PMH of HTN, Renal cyst and A-fib admitted to the ER with hematochezia found to have supratherapeutic INR. He had an initial CT abdomen pelvis with angio with a possible blush in the mid descending colon, however, when reevaluated
radiology felt this was not truly a positive CTA. He was monitored clinically and continued to have evidence of rectal bleeding and orthostasis, yesterday with an episode of melena, prompting an urgent endoscopy which revealed actively bleeding
AVMs in the stomach, successfully treated with APC.
Hgb trend: 13.9 --> 12.3 --> 10.8 --> 10.6 -->10 --> 9.6 --> 9.9 --> 9.3 8.8 --> 8.9--> 9.4
INR: 7.12 --> 5.90 --> 2.61 --> 1.81 --> 1.16
Plan/Assessment:
-Hgb stable, no signs of ongoing bleeding
-Okay to resume anticoagulation, hopefully, able to get eliquis at an affordable rodriguez, working with CM
-evidence of long-segment barretts esophagus on EGD-- needs repeat EGD for formal biopsies/diagnosis as an outpatient, not obtained in setting of active bleeding.
-office appt. scheduled with GI on 08/05 @ 11:30 AM with Arlene Terry, will schedule repeat EGD at that time and discuss if colonoscopy is warranted as well.
GI will sign off, please call with questions.
Subjective
Subjective
Date of Service: June 21, 2024
Patient seen in follow-up. No overnight events. Hgb stable. Plan for d/c today, once anticoagulation is determined, likely eliquis but at lowered rodriguez with CM help.
Objective
Data Reviewed
Laboratory Data:
Laboratory Results
06/21/24 07:40
06/20/24 04:33
Laboratory Results
PT 14.3 Sec (11.4-14.6) 06/20/24 04:33
INR 1.08 06/20/24 04:33
APTT 77.3 Sec (23.4-35.0) H 06/16/24 13:22
Magnesium 1.6 mg/dl (1.6-2.3) 06/19/24 06:15
Total Bilirubin 1.1 mg/dl (0.2-1.3) 06/18/24 03:27
AST 23 U/L (17-59) 06/18/24 03:27
ALT 14 U/L (0-50) 06/18/24 03:27
Alkaline Phosphatase 46 U/L (38-126) 06/18/24 03:27
Vital Signs and I&O:
Vital Signs
Temp Pulse Resp BP Pulse Ox
98.1 F 91 18 110/69 96
06/21/24 11:23 06/21/24 11:23 06/21/24 11:23 06/21/24 11:23 06/21/24 11:23
I&O
06/20/24 06/21/24 06/22/24
06:59 06:59 06:59
Intake Total 2340 / 2340 840 / 840
Output Total 725 / 725 825 / 825
Balance 1615 / 1615
Physical Exam
Physical Exam
HEENT: no scleral icterus, mucous membranes moist, OP clear
ABDOMEN: +BS; soft, non-tender and non-distended; no rebound or guarding
--- NOTE | 2024-06-21 13:08 | W.PN.HOSP.TC ---
Today's Communication/Plan
-
Pending final cardiology recommendation and D/C
Assessment / Plan
Assessment / Plan
78yo M with PMHx of Afib, HTN came with bright red blood per rectum. Was recently switched to Coumadin from Eliquis 2/2 co-payment amount and was also found supratherapeutic INR. S/P EGD on 05/18/24 with multiple bleeding angioectasias that were
treated. Monitoring for recurrent bleeding, advancing the diet and following HGB that was stable over the course of hospital stay. As per - Xarelto 20mg HS daily will have co-pay of $130, that patient and are agreeable to. HR better
controlled on increased BB. Pending final recommendations from cardiology ahead of D/C
A/P:
#Acute symptomatic blood loss anemia 2/2 upper GIB
#Barrets
CTA on admission iwth possible blush in the mid-descending colon, however felt to be not truly positive by GI and radiology review
s/p EGD on 05/18/24
Serial HGB
Daily orthostatics
Advance diet
GI for repeated EGD as outpatient
PPI
#Essential HTN
holding antihypertensives
#Paroxysmal Afib, poorly controlled
#Supratherapeutic INR
Xarelto 20mg daily
Cardio consult: BB
Telemetry
started BB
#hypomagnesemia
Replete
DVT ppx SCDs
Full code
I have spent at least 36min reviewing chart, test results, communication with consultants and direct patient care
Anticipated Discharge: Within 24 hours
Subjective/Interval History
-
Date of Service: June 21, 2024
Objective Data
-
Labs:
Laboratory Results
06/21/24
07:40
Hgb 9.4 L
Hct 27.7 L
Vital Signs:
Vital Signs
Temp Pulse Resp BP Pulse Ox
98.1 F 91 18 110/69 96
06/21/24 11:23 06/21/24 11:23 06/21/24 11:23 06/21/24 11:23 06/21/24 11:23
I&O
06/20/24 06/21/24 06/22/24
06:59 06:59 06:59
Intake Total 2340 / 2340 840 / 840
Output Total 725 / 725 825 / 825
Balance 1615 / 1615
Review of Systems
-
History Source: Patient
All other systems: Reviewed and negative
Physical Exam
-
General: No Apparent Distress
HEENT: Normocephalic
GI: Soft, Nontender and Nondistended
Musculoskeletal: No Clubbing, No Cyanosis and No Edema
Neuro: Awake, Alert, Oriented and AO x 3
Psych: Calm
--- NOTE | 2024-06-21 13:17 | W.DCSUMMARY ---
Addendum entered and electronically signed by Chucho Wheat MD 06/21/24 15:19:
Persistent, not paroxysmal, A.fib
Original Note:
Discharge Summary
Discharge Data
Date of Admission: 06/16/24
Date of Discharge: 06/21/24
-
Pending Results: No
Hospital Course
78yo M with PMHx of Afib, HTN came with bright red blood per rectum. Was recently switched to Coumadin from [place] 2/2 co-payment amount and was also found supratherapeutic INR. S/P EGD on 05/18/24 with multiple bleeding angiectasias that were
treated. Monitoring for recurrent bleeding, advancing the diet and following HGB that was stable over the course of hospital stay. As per CM - Xarelto 20mg HS daily will have co-pay of $130, that patient and are agreeable to. HR better
controlled on increased BB as per agreement with cardiology- can d/c on Toprol 75mg BID. Medically stable for D/C
I have spent at least 38min preparing d/c
Patient was managed for:
#Acute symptomatic blood loss anemia 2/2 upper GIB
#Barrets esophagus
#Essential HTN
#Paroxysmal Afib, poorly controlled
#Supratherapeutic INR
#hypomagnesemia
Discharge Plan
-
Patient Disposition: Home with Home Care
Discharge Diagnosis/Procedures: GIB
Diet: 2 Gram Sodium
Activity: As tolerated
Driving Restrictions: As prior to admission
Referrals:
Jac Mehta MD [Active] - in one to two weeks
Daysi Delgadillo DO [Family Provider] -
Arlene Terry PA-C [Specified Professional Personl] - 08/05/24 11:30 am
Prescriptions:
New
Xarelto 20 mg tablet
20 mg PO QPM Qty: 30 0RF
pantoprazole 40 mg Tablet,Delayed Release (Dr/Ec)
40 mg PO DAILY Qty: 30 0RF
metoprolol succinate [Toprol XL] 50 mg tablet extended release 24 hr
75 mg PO BID Qty: 60 0RF
Continued
acetaminophen 650 mg Tablet Extended Release
1,300 mg PO [id number] MDD pat PRN (Reason: mild pain)
omega [id number] oil [Fish Oil] 1,000 (120-180) mg Capsule
1 cap PO DAILY
Discontinued
omeprazole 20 MG capsule,delayed release(DR/EC)
20 mg PO DAILY
amlodipine 10 MG tablet
10 mg PO DAILY
losartan 100 MG tablet
100 mg PO DAILY
warfarin 5 mg Tablet
5 mg PO UD
Patient Comments:
06/16/24- patient and spouse does not know current directions, last inr drawn on 06/14/24 and reading 7.1 patient was told to hold for 2 days
Discharge Orders:
Discharge Patient (As Directed); Ordered 06/21/24
Ordered By: Chucho Wheat
Discharge Date and Time
Print Language: YORUBA
[2024-06-21 13:34] VITALS: BP 119/63; PULSE 69
--- NOTE | 2024-06-21 15:01 | PN.CDI ---
CDI
- -
CDI:
Physician Documentation Request
Admit Date: 06/16/24 09:34
Dear Doctor Mary Alice,
Clinical Indicators:
Patient admitted with upper GIB.
06/20 Cardiology PN, 'Persistent atrial fibrillation...-No plans to restore sinus rhythm at this time'
06/21 PN, 'Paroxysmal Afib, poorly controlled'
06/16 EKG & 06/16 -06/21 tele monitoring: Atrial Fibrillation
Due to potentially conflicting documentation, please clarify the type of atrial fibrillation, such as:
Persistent atrial fibrillation - episodes of continuous AF that last more than 7 days and do not self-terminate
Paroxysmal atrial fibrillation - terminates spontaneously or with intervention within 7 days of onset
Other - please specify
Use of terms such as suspected, likely, concern for, or probable (associated with a specific diagnosis that is being evaluated, monitored, or treated as if it exists) are acceptable and can be coded in the inpatient setting, when documented at the
time of discharge.
Thank you,
Julisa Lobato RN BSN
CDI Specialist
available via tiger text
Please use your independent medical judgment in providing your response.
== END 2024-06-21 14:18 | disposition home or self-care (01) | DRG 378 ==
LOC: 4 EAST ACU 09:34
PROVIDERS: Internal Medicine; Nurse Practitioner Family; Nurse Practitioner Primary Care; ADMITTING PHYSICIAN Hospitalist; ATTENDING PHYSICIAN Internal Medicine; CONSULT PHYSICIAN Internal Medicine Critical Care Medicine; CONSULT PHYSICIAN Student in an Organized Health Care Education/Training Program; EMERGENCY PHYSICIAN Emergency Medicine; FAMILY PHYSICIAN Family Medicine
PROC: 0W3P8ZZ Control Bleeding in Gastrointestinal Tract, Via Natural or Artificial Opening Endoscopic (ICD-10-PCS; 2024-06-18)
DX: K31.811 Angiodysplasia of stomach and duodenum with bleeding (principal); D62 Acute posthemorrhagic anemia; D68.32 Hemorrhagic disorder due to extrinsic circulating anticoagulants; I48.19 Other persistent atrial fibrillation; I10 Essential (primary) hypertension; E78.5 Hyperlipidemia, unspecified; K21.9 Gastro-esophageal reflux disease without esophagitis; K44.9 Diaphragmatic hernia without obstruction or gangrene; K31.7 Polyp of stomach and duodenum; K22.70 Barrett's esophagus without dysplasia; E83.42 Hypomagnesemia; T45.515A Adverse effect of anticoagulants, initial encounter; I95.1 Orthostatic hypotension; F32.A Depression, unspecified; G89.29 Other chronic pain; I25.2 Old myocardial infarction; Z88.5 Allergy status to narcotic agent; Z96.651 Presence of right artificial knee joint; Z96.643 Presence of artificial hip joint, bilateral; Z90.49 Acquired absence of other specified parts of digestive tract; Z79.899 Other long term (current) drug therapy; Z79.01 Long term (current) use of anticoagulants
CPT/HCPCS: 36415; 71101; 74174; 80048; 80053; 81003; 82607; 82728; 83540; 83550; 83735; 85014; 85018; 85025; 85027; 85610; 85730; 86850; 86900; 86901; 93005; 97162; 97166; 97530; 99291; Q9967

== ENCOUNTER → 2024-08-08 08:30 | Outpatient (REF) | payer MEDICARE, OTHER, SELFPAY ==
[2024-08-08 09:36] LABS: % Basophils 1.1 % (0-2); % Eosinophils 3.2 % (0-6); % Immature Granulocytes 0.2 % (0-0.5); % Lymphocytes 42.7 % (20.5-51.1); % Monocytes 10.3 % (1.7-9.3); % Neutrophils 42.5 % (42.2-75.2); Absolute Basophils 0.1 10^3/uL (0-0.2); Absolute Eosinophils 0.2 10^3/uL (0-0.7); Absolute Lymphocytes 2.7 10^3/uL (1.2-3.4); Absolute Monocytes 0.6 10^3/uL (0.1-0.6); Absolute Neutrophils 2.7 10^3/uL (1.4-6.5); Mean Corp Hgb Conc. 31.3 g/dL (33.0-37.0); Mean Corpuscular Hgb 30.9 pg (27.0-31.0); Mean Corpuscular Volume 98.8 fL (80.0-94.0); Mean Platelet Volume 10.5 fL (7.4-10.4); Nucleated Red Blood Cells % 0 % (-); Platelet Count 251 10^3/uL (130-400); Red Blood Cell Count 3.24 10^6/uL (4.70-6.10); Red Cell Dist. Width 13.4 % (11.5-14.5); White Blood Cell Count 6.2 10^3/uL (4.8-10.8)
== END ==
LOC: HWLAB 08:30
PROVIDERS: ATTENDING PHYSICIAN Physician Assistant; FAMILY PHYSICIAN Family Medicine
DX: D62 Acute posthemorrhagic anemia (principal)
CPT/HCPCS: 36415; 85025

== ENCOUNTER 2024-09-06 06:17 | Day surgery (SDC) | payer MEDICARE, OTHER, SELFPAY | END 2024-09-06 10:19 | disposition home or self-care (01) | LOC: GI 06:17 | PROVIDERS: ATTENDING PHYSICIAN Internal Medicine; FAMILY PHYSICIAN Family Medicine | DX: K22.89 Other specified disease of esophagus (principal); K31.7 Polyp of stomach and duodenum; Z13.810 Encounter for screening for upper gastrointestinal disorder; Z79.01 Long term (current) use of anticoagulants | CPT/HCPCS: 43239; 88305 ==

== ENCOUNTER → 2024-10-12 10:01 | Outpatient (REF) | payer MEDICARE, OTHER, SELFPAY ==
[2024-10-12 13:06] LABS: % Basophils 1.1 % (0-2); % Eosinophils 2.9 % (0-6); % Immature Granulocytes 0.2 % (0-0.5); % Lymphocytes 36.8 % (20.5-51.1); % Monocytes 10.2 % (1.7-9.3); % Neutrophils 48.8 % (42.2-75.2); Absolute Basophils 0.1 10^3/uL (0-0.2); Absolute Eosinophils 0.2 10^3/uL (0-0.7); Absolute Lymphocytes 2.3 10^3/uL (1.2-3.4); Absolute Monocytes 0.6 10^3/uL (0.1-0.6); Absolute Neutrophils 3.1 10^3/uL (1.4-6.5); Hematocrit 35.7 % (39.0-52.0); Hemoglobin 11.1 g/dL (13.0-18.0); Mean Corp Hgb Conc. 31.1 g/dL (33.0-37.0); Mean Corpuscular Hgb 27.9 pg (27.0-31.0); Mean Corpuscular Volume 89.7 fL (80.0-94.0); Mean Platelet Volume 11.1 fL (7.4-10.4); Nucleated Red Blood Cells % 0 % (-); Platelet Count 257 10^3/uL (130-400); Red Blood Cell Count 3.98 10^6/uL (4.70-6.10); Red Cell Dist. Width 16.2 % (11.5-14.5); White Blood Cell Count 6.3 10^3/uL (4.8-10.8)
[2024-10-12 14:06] LABS: Iron 59 ug/dl (49-181)
[2024-10-12 14:17] LABS: Percent Saturation 16 % (20-50); Total Iron Binding Capacity 366 ug/dl (261-462)
[2024-10-12 14:39] LABS: Ferritin 13.1 ng/ml (17.9-464.0)
== END ==
LOC: HWLAB 10:01
PROVIDERS: ATTENDING PHYSICIAN Internal Medicine Cardiovascular Disease; FAMILY PHYSICIAN Family Medicine
DX: I48.20 Chronic atrial fibrillation, unspecified (principal); R06.09 Other forms of dyspnea; K92.2 Gastrointestinal hemorrhage, unspecified
CPT/HCPCS: 36415; 82728; 83540; 83550; 85025

== ENCOUNTER → 2024-10-20 07:20 | Outpatient (REF) | payer MEDICARE, OTHER, SELFPAY | LOC: RCS 07:20 | PROVIDERS: ATTENDING PHYSICIAN Internal Medicine Cardiovascular Disease; FAMILY PHYSICIAN Family Medicine | DX: I48.20 Chronic atrial fibrillation, unspecified (principal); R06.09 Other forms of dyspnea; K92.2 Gastrointestinal hemorrhage, unspecified | CPT/HCPCS: 93017 ==

== ENCOUNTER → 2024-10-25 13:52 | Outpatient (REF) | payer MEDICARE, OTHER, SELFPAY | LOC: HWRCS 13:52 | PROVIDERS: ATTENDING PHYSICIAN Internal Medicine Cardiovascular Disease; FAMILY PHYSICIAN Family Medicine | DX: I48.20 Chronic atrial fibrillation, unspecified (principal); R06.09 Other forms of dyspnea; K92.2 Gastrointestinal hemorrhage, unspecified | CPT/HCPCS: 93306 ==

== ENCOUNTER → 2024-11-03 08:43 | Outpatient (REF) | payer MEDICARE, OTHER, SELFPAY ==
[2024-11-03 13:41] LABS: Blood Urea Nitrogen 14 mg/dl (9-20); Calcium 9.4 mg/dl (8.4-10.2); Carbon Dioxide 27 mmol/L (22-30); Chloride 106 mmol/L (98-107); Glucose 137 mg/dl (70-99); Potassium 4.1 mmol/L (3.5-5.1); Sodium 143 mmol/L (135-145); eGFR > 60.00
== END ==
LOC: HWLAB 08:43
PROVIDERS: ATTENDING PHYSICIAN Internal Medicine Cardiovascular Disease; FAMILY PHYSICIAN Family Medicine
DX: I10 Essential (primary) hypertension (principal)
CPT/HCPCS: 80048

== ENCOUNTER → 2024-12-01 10:58 | Outpatient (REF) | payer MEDICARE, OTHER, SELFPAY ==
[2024-12-01 16:30] LABS: % Basophils 0.8 % (0-2); % Eosinophils 1.9 % (0-6); % Immature Granulocytes 0.2 % (0-0.5); % Lymphocytes 36.2 % (20.5-51.1); % Monocytes 8.7 % (1.7-9.3); % Neutrophils 52.2 % (42.2-75.2); Absolute Basophils 0.1 10^3/uL (0-0.2); Absolute Eosinophils 0.1 10^3/uL (0-0.7); Absolute Lymphocytes 2.3 10^3/uL (1.2-3.4); Absolute Monocytes 0.6 10^3/uL (0.1-0.6); Absolute Neutrophils 3.4 10^3/uL (1.4-6.5); Hematocrit 35.7 % (39.0-52.0); Hemoglobin 11.6 g/dL (13.0-18.0); Mean Corp Hgb Conc. 32.5 g/dL (33.0-37.0); Mean Corpuscular Hgb 31.1 pg (27.0-31.0); Mean Corpuscular Volume 95.7 fL (80.0-94.0); Mean Platelet Volume 11.9 fL (7.4-10.4); Nucleated Red Blood Cells % 0 % (-); Platelet Count 202 10^3/uL (130-400); Red Blood Cell Count 3.73 10^6/uL (4.70-6.10); White Blood Cell Count 6.5 10^3/uL (4.8-10.8)
[2024-12-01 17:11] LABS: Ferritin 22.2 ng/ml (17.9-464.0)
== END ==
LOC: HWLAB 10:58
PROVIDERS: ATTENDING PHYSICIAN Family Medicine
DX: D64.9 Anemia, unspecified (principal)
CPT/HCPCS: 36415; 82728; 85025

== ENCOUNTER → 2025-01-09 08:37 | Outpatient (REF) | payer MEDICARE, OTHER, SELFPAY ==
[2025-01-09 12:38] LABS: % Basophils 0.8 % (0-2); % Eosinophils 3.4 % (0-6); % Immature Granulocytes 0.2 % (0-0.5); % Lymphocytes 42.5 % (20.5-51.1); % Monocytes 8.4 % (1.7-9.3); % Neutrophils 44.7 % (42.2-75.2); Absolute Basophils 0.1 10^3/uL (0-0.2); Absolute Eosinophils 0.2 10^3/uL (0-0.7); Absolute Lymphocytes 2.5 10^3/uL (1.2-3.4); Absolute Monocytes 0.5 10^3/uL (0.1-0.6); Absolute Neutrophils 2.7 10^3/uL (1.4-6.5); Hematocrit 37.5 % (39.0-52.0); Hemoglobin 12.4 g/dL (13.0-18.0); Mean Corp Hgb Conc. 33.1 g/dL (33.0-37.0); Mean Corpuscular Hgb 33.2 pg (27.0-31.0); Mean Corpuscular Volume 100.3 fL (80.0-94.0); Nucleated Red Blood Cells % 0 % (-); Platelet Count 207 10^3/uL (130-400); Red Blood Cell Count 3.74 10^6/uL (4.70-6.10); Red Cell Dist. Width 16.1 % (11.5-14.5)
[2025-01-09 13:27] LABS: Ferritin 25.3 ng/ml (17.9-464.0)
== END ==
LOC: HWLAB 08:37
PROVIDERS: ATTENDING PHYSICIAN Family Medicine
DX: D64.9 Anemia, unspecified (principal)
CPT/HCPCS: 36415; 82728; 85025

== ENCOUNTER → 2025-05-18 09:04 | Outpatient (REF) | payer MEDICARE, OTHER, SELFPAY ==
[2025-05-18 12:45] LABS: Albumin 4.2 g/dl (3.5-5.0); Blood Urea Nitrogen 15 mg/dl (9-20); Calcium 9.1 mg/dl (8.4-10.2); Carbon Dioxide 26 mmol/L (22-30); Chloride 105 mmol/L (98-107); Glucose 102 mg/dl (70-99); Potassium 4.2 mmol/L (3.5-5.1); Sodium 137 mmol/L (135-145); eGFR > 60.00
== END ==
LOC: HWLAB 09:04
PROVIDERS: ATTENDING PHYSICIAN Internal Medicine Cardiovascular Disease; FAMILY PHYSICIAN Family Medicine
DX: I50.30 Unspecified diastolic (congestive) heart failure (principal)
CPT/HCPCS: 36415; 80069; 83880

== ENCOUNTER → 2025-06-15 07:23 | Outpatient (REF) | payer MEDICARE, OTHER, SELFPAY ==
[2025-06-15 12:14] LABS: Albumin 4.1 g/dl (3.5-5.0); Blood Urea Nitrogen 18 mg/dl (9-20); Calcium 9.1 mg/dl (8.4-10.2); Carbon Dioxide 25 mmol/L (22-30); Chloride 107 mmol/L (98-107); Glucose 105 mg/dl (70-99); Potassium 4.5 mmol/L (3.5-5.1); Sodium 140 mmol/L (135-145); eGFR > 60.00
== END ==
LOC: HWLAB 07:23
PROVIDERS: ATTENDING PHYSICIAN Internal Medicine Cardiovascular Disease; FAMILY PHYSICIAN Family Medicine
DX: I50.30 Unspecified diastolic (congestive) heart failure (principal)
CPT/HCPCS: 36415; 80069